=== PATIENT | female | born 1945 | race Caucasian/White ===

== ENCOUNTER 2016-07-20 09:27 | Emergency (ER) | payer MEDICARE, BC ==
[~2016-07-20] VITALS: Ht 165.1 cm; Wt 47.0 kg
[~2016-07-20 09:27] MED LIST: FOLI5CAP PO; INFL100P; SULF500 PO; TIMO0.5S5 EACH EYE; TRAV0.00 EACH EYE; ZOFR4TAB3 SL
[2016-07-20 09:32] VITALS: BP 103/58; PULSE 79; RESP 16; TEMP 97.5; O2SAT 98
[2016-07-20] MEDS ORDERED: SODIUM CHLOR 0.9% 1000 ML INJ 1,000 ML IV SCH ×2 (09:59→11:24)
[2016-07-20] MEDS ORDERED: ONDANSETRON HCL 4 MG/2 ML VIAL IVP ONE (10:00)
[2016-07-20] MEDS ORDERED: MORPHINE SULFATE 4 MG/ML INJ IV PUSH ONE (10:00)
[2016-07-20] MEDS ORDERED: SODIUM CHLORIDE 0.9% FLUSH 10 ML FLUSH IV FLUSH PRN (10:00)
[2016-07-20 10:14] LABS: BASOPHIL # 0.1 TH/MM3 (0-0.2); BASOPHIL % 0.6 % (0.0-2.0); EOSINOPHIL # 0.4 TH/MM3 (0-0.4); EOSINOPHIL % 2.5 % (0.0-4.0); HEMO FLAGS DIFF FINAL; MEAN CELL VOLUME 81.2 FL (80.0-100.0); MEAN CORPUSCULAR HEMOGLOBIN 27.6 PG (27.0-34.0); NEUT % 75.9 % (16.0-70.0); PLATELET COUNT 342 TH/MM3 (150-450); RED CELL DISTRIBUTION WIDTH 13.5 % (11.6-17.2); WHITE BLOOD COUNT 14.5 TH/MM3 (4.0-11.0)
[2016-07-20 10:24] LABS: INTERNATIONAL NORMALIZED RATIO 0.9 RATIO; PROTHROMBIN TIME - PATIENT 10.2 SEC (9.8-11.6)
--- NOTE | 2016-07-20 10:27 | PD ---
HPI Chief Complaint: Abdominal Pain Time Seen by Provider: 09:54 Travel History International Travel<30 days: No Contact w/Intl Traveler<30days: No Traveled to known affect area: No History of Present Illness HPI Patient is a 70-year-old female with history of Crohn's disease, presents to emergency room with complaints of abdominal pain. Patient reports that she has been having abdominal pain since yesterday afternoon, the pain is throughout her lower abdomen. She reports that she has had Crohn's flareups in the past with similar to symptoms to today. Patient reports that she does follow with Dr. Alejandra THIBODEAUX for her disease. She does get Remicade infusions and last had an infusion 2 weeks ago. Reports no nausea or vomiting, denies any diarrhea or constipation. Denies any bloody stools. Patient with no fevers or chills at this time. PFSH Past Medical History Arthritis: No Asthma: No Anxiety: No Depression: No Heart Rhythm Problems: No Cancer: No Cardiovascular Problems: No High Cholesterol: No Chest Pain: No Congestive Heart Failure: No COPD: No Cerebrovascular Accident: No Diabetes: No Diminished Hearing: No Endocrine: No Gastrointestinal Disorders: Yes (CROHN'S) GERD: No Glaucoma: Yes Genitourinary: No Hepatitis: No Hiatal Hernia: No Kidney Stones: Yes Musculoskeletal: No Neurologic: No Psychiatric: No Respiratory: No Immunizations Current: No Renal Failure: No Sleep Apnea: No Thyroid Disease: No Ulcer: No Influenza Vaccination: No ?: Not Menopausal: Yes Past Surgical History Abdominal Surgery: Yes (BOWEL RESECTION 1982, 1988) AICD: No Arteriovenous Shunt: No Body Medical Devices: BREAST IMPLANTS Cardiac Surgery: No Ear Surgery: No Endocrine Surgery: No Eye Surgery: No Genitourinary Surgery: No Gynecologic Surgery: No Insulin Pump: No Joint Replacement: No Oral Surgery: Yes (DENTURES) Pacemaker: No Thoracic Surgery: No Other Surgery: Yes Social History Alcohol Use: Yes (OCC) Tobacco Use: No (quit 6 years ago) Substance Use: No Allergies-Medications (Allergen,Severity, Reaction): Coded Allergies: Contrast Media (Verified Allergy, Intermediate, Hives, 07/20/16) Iodine (Verified Allergy, Intermediate, Hives, 07/20/16) Sulfa (Verified Allergy, Intermediate, Nausea/Vomiting, 07/20/16) Reported Meds & Prescriptions Reported Meds & Active Scripts Active Reported Travatan Z Opth Drops (Travoprost) 0.004 % Soln 1 Drop EACH EYE HS Timoptic Opth Drops (Timolol Opth Drops) 0.5 % Soln 1 Drop EACH EYE BID Remicade Inj (Infliximab) 100 Mg Inj Azulfidine (Sulfasalazine) 500 Mg Tab 500 Mg PO Q6H Folic Acid 5 Mg Cap 1 Mg PO DAILY Zofran Odt (Ondansetron Odt) 4 Mg Tab 4 Mg SL Q12HR PRN Review of Systems General / Constitutional: No: Fever Eyes: No: Visual changes HENT: No: Headaches Cardiovascular: No: Chest Pain or Discomfort Respiratory: No: Shortness of Breath Gastrointestinal: Positive: Abdominal Pain, No: Nausea, Vomiting, Diarrhea Genitourinary: No: Dysuria Musculoskeletal: No: Pain Skin: No Rash Neurologic: No: Weakness Psychiatric: No: Depression Endocrine: No: Polydipsia Hematologic/Lymphatic: No: Easy Bruising Physical Exam Narrative GENERAL: moderate distress SKIN: Focused skin assessment warm/dry. HEAD: Atraumatic. Normocephalic. EYES: Pupils equal and round. No scleral icterus. No injection or drainage. ENT: No nasal bleeding or discharge. Mucous membranes pink and moist. NECK: Trachea midline. No JVD. CARDIOVASCULAR: Regular rate and rhythm. No murmur appreciated. RESPIRATORY: No accessory muscle use. Clear to auscultation. Breath sounds equal bilaterally. GASTROINTESTINAL: Abdomen soft, increased tenderness to lower abdomen with guarding on exam. MUSCULOSKELETAL: No obvious deformities. No clubbing. No cyanosis. No edema. NEUROLOGICAL: Awake and alert. No obvious cranial nerve deficits. Motor grossly within normal limits. Normal speech. PSYCHIATRIC: Appropriate mood and affect; insight and judgment normal. Data Data Last Documented VS Vital Signs Date Time Temp Pulse Resp B/P Pulse Ox O2 Delivery O2 Flow Rate FiO2 07/20/16 11:50 18 07/20/16 11:09 79 103/58 97 Room Air 07/20/16 09:32 97.5 Orders Complete Blood Count With Diff (07/20/16 09:59) Comprehensive Metabolic Panel (07/20/16 09:59) Lipase (07/20/16 09:59) Prothrombin Time / Inr (Pt) (07/20/16 09:59) Act Partial Throm Time (Ptt) (07/20/16 09:59) Urinalysis - C+S If Indicated (07/20/16 09:59) Ct Abd/Pel W/O Iv Contrast (07/20/16 09:59) Iv Access Insert/Monitor (07/20/16 09:59) Morphine Inj (Morphine Inj) (07/20/16 10:00) Ondansetron Inj (Zofran Inj) (07/20/16 10:00) Sodium Chlor 0.9% 1000 Ml Inj (Ns 1000 M (07/20/16 09:59) Sodium Chloride 0.9% Flush (Ns Flush) (07/20/16 10:00) Hydromorphone Pf Inj (Dilaudid Pf Inj) (07/20/16 11:30) Sodium Chlor 0.9% 1000 Ml Inj (Ns 1000 M (07/20/16 11:24) Labs Laboratory Tests Test 07/20/16 10:00 White Blood Count 14.5 TH/MM3 Red Blood Count 4.30 MIL/MM3 Hemoglobin 11.9 GM/DL Hematocrit 35.0 % Mean Corpuscular Volume 81.2 FL Mean Corpuscular Hemoglobin 27.6 PG Mean Corpuscular Hemoglobin 34.0 % Concent Red Cell Distribution Width 13.5 % Platelet Count 342 TH/MM3 Mean Platelet Volume 7.4 FL Neutrophils (%) (Auto) 75.9 % Lymphocytes (%) (Auto) 14.0 % Monocytes (%) (Auto) 7.0 % Eosinophils (%) (Auto) 2.5 % Basophils (%) (Auto) 0.6 % Neutrophils # (Auto) 11.0 TH/MM3 Lymphocytes # (Auto) 2.0 TH/MM3 Monocytes # (Auto) 1.0 TH/MM3 Eosinophils # (Auto) 0.4 TH/MM3 Basophils # (Auto) 0.1 TH/MM3 CBC Comment DIFF FINAL Differential Comment Prothrombin Time 10.2 SEC Prothromb Time International 0.9 RATIO Ratio Activated Partial 25.0 SEC Thromboplast Time Sodium Level 142 MEQ/L Potassium Level 3.7 MEQ/L Chloride Level 108 MEQ/L Carbon Dioxide Level 29.7 MEQ/L Anion Gap 4 MEQ/L Blood Urea Nitrogen 14 MG/DL Creatinine 0.71 MG/DL Estimat Glomerular Filtration 81 ML/MIN Rate Random Glucose 89 MG/DL Calcium Level 8.5 MG/DL Total Bilirubin 0.4 MG/DL Aspartate Amino Transf 301 U/L (AST/SGOT) Alanine Aminotransferase 130 U/L (ALT/SGPT) Alkaline Phosphatase 104 U/L Total Protein 6.9 GM/DL Albumin 2.6 GM/DL Lipase 68 U/L MDM Medical Decision Making Medical Screen Exam Complete: Yes Emergency Medical Condition: Yes Interpretation(s) Vital Signs Date Time Temp Pulse Resp B/P Pulse Ox O2 Delivery O2 Flow Rate FiO2 07/20/16 10:20 18 07/20/16 09:32 97.5 79 16 103/58 98 Differential Diagnosis Crohn's disease, appendicitis, diverticulitis, small bowel obstruction, UTI Narrative Course Patient is a 70-year-old female with history of Crohn's disease, presents to emergency room with complaints of abdominal pain. Patient reports pain to her lower abdomen, reports symptoms are similar to when she has had Crohn's flareups in the past. On evaluation, patient is uncomfortable, patient does have lower abdominal pain with guarding on exam. Lab work including CT of the abdomen and pelvis ordered for workup of her symptoms. She was given IV fluids as well as pain medications. Will monitor patient on logger all round Vital Signs Date Time Temp Pulse Resp B/P Pulse Ox O2 Delivery O2 Flow Rate FiO2 07/20/16 11:50 18 07/20/16 11:09 79 18 103/58 97 Room Air 07/20/16 10:20 18 07/20/16 09:32 97.5 79 16 103/58 98 Laboratory Tests Test 07/20/16 10:00 White Blood Count 14.5 TH/MM3 (4.0-11.0) Red Blood Count 4.30 MIL/MM3 (4.00-5.30) Hemoglobin 11.9 GM/DL (11.6-15.3) Hematocrit 35.0 % (35.0-46.0) Mean Corpuscular Volume 81.2 FL (80.0-100.0) Mean Corpuscular Hemoglobin 27.6 PG (27.0-34.0) Mean Corpuscular Hemoglobin 34.0 % Concent (32.0-36.0) Red Cell Distribution Width 13.5 % (11.6-17.2) Platelet Count 342 TH/MM3 (150-450) Mean Platelet Volume 7.4 FL (7.0-11.0) Neutrophils (%) (Auto) 75.9 % (16.0-70.0) Lymphocytes (%) (Auto) 14.0 % (9.0-44.0) Monocytes (%) (Auto) 7.0 % (0.0-8.0) Eosinophils (%) (Auto) 2.5 % (0.0-4.0) Basophils (%) (Auto) 0.6 % (0.0-2.0) Neutrophils # (Auto) 11.0 TH/MM3 (1.8-7.7) Lymphocytes # (Auto) 2.0 TH/MM3 (1.0-4.8) Monocytes # (Auto) 1.0 TH/MM3 (0-0.9) Eosinophils # (Auto) 0.4 TH/MM3 (0-0.4) Basophils # (Auto) 0.1 TH/MM3 (0-0.2) CBC Comment DIFF FINAL Differential Comment Prothrombin Time 10.2 SEC (9.8-11.6) Prothromb Time International 0.9 RATIO Ratio Activated Partial 25.0 SEC Thromboplast Time (24.3-30.1) Sodium Level 142 MEQ/L (136-145) Potassium Level 3.7 MEQ/L (3.5-5.1) Chloride Level 108 MEQ/L (98-107) Carbon Dioxide Level 29.7 MEQ/L (21.0-32.0) Anion Gap 4 MEQ/L (5-15) Blood Urea Nitrogen 14 MG/DL (7-18) Creatinine 0.71 MG/DL (0.50-1.00) Estimat Glomerular Filtration 81 ML/MIN (>89) Rate Random Glucose 89 MG/DL (74-106) Calcium Level 8.5 MG/DL (8.5-10.1) Total Bilirubin 0.4 MG/DL (0.2-1.0) Aspartate Amino Transf 301 U/L (15-37) (AST/SGOT) Alanine Aminotransferase 130 U/L (10-53) (ALT/SGPT) Alkaline Phosphatase 104 U/L (45-117) Total Protein 6.9 GM/DL (6.4-8.2) Albumin 2.6 GM/DL (3.4-5.0) Lipase 68 U/L (73-393) Last Impressions Abdomen/Pelvis CT 07/20/16 [id number] Signed Impressions: Service Date/Time: Wednesday, July 20, 2016 10:18 - CONCLUSION: 1. There continues to be chronic abnormality involving the mid to distal small bowel with inflammatory changes, dilatation and multiple calcified enteroliths. This pattern is not significantly changed compared to 2016. There does appear to be some mild increased dilatation of the distal small bowel compared to the prior study. These findings correlate with patient's history of Crohn's disease. No focal or loculated abscess is seen. 2. Stable tiny 2 mm stone mid pole right kidney not causing obstruction. 3. Status post cholecystectomy. 4. Stable mesenteric mildly prominent lymph nodes. Ben Buitrago MD Patient re-evaluated, patient was still uncomfortable after 4 mg of morphine was administered, I did administer Dilaudid 1 mg as well as another bag of IV fluids. I reviewed all labs and all studies as well as CT findings in detail with patient. A copy of her CAT scan report was given to her for follow-up as outpatient. Patient reevaluated, patient reports that she is feeling much better after the second dose of pain medication. Her abdomen is soft, nontender, nondistended, no peritoneal signs. She will follow-up with her wardrobe stylist Dr. Espino as well as her primary care doctor. She will return to emergency room if symptoms worsen or progress Diagnosis Primary Impression: Abdominal pain Qualified Code: R10.30 - Lower abdominal pain Additional Impression: Leukocytosis Qualified Code: D72.829 - Leukocytosis, unspecified type Patient Instructions: General Instructions, Narcotic given in the ED Additional Instructions: Please follow up with your wardrobe stylist as soon as possible Please follow up with your primary care doctor in 24 to 48 hours Return to the emergency room symptoms worsen or progress Return to the emergency room as needed Mariela Lyle DO July 20, 2016 10:27
[2016-07-20 10:30] LABS: CHLORIDE 108 MEQ/L (98-107); POTASSIUM 3.7 MEQ/L (3.5-5.1); SODIUM (NA) 142 MEQ/L (136-145)
[2016-07-20 10:34] LABS: ANION GAP 4 MEQ/L (5-15); BICARBONATE 29.7 MEQ/L (21.0-32.0); BLOOD UREA NITROGEN 14 MG/DL (7-18)
[2016-07-20 10:37] LABS: ALT (GPT) 130 U/L (10-53); AST (GOT) 301 U/L (15-37); GLOMERULAR FILTRATION RATE 81 ML/MIN (>89)
[2016-07-20 10:38] LABS: TOTAL BILIRUBIN ADULT 0.4 MG/DL (0.2-1.0)
[2016-07-20 10:39] LABS: ALKALINE PHOSPHATASE 104 U/L (45-117)
--- NOTE | 2016-07-20 10:47 | RADHPO ---
EXAM DATE/TIME: 07/20/2016 10:18 [facility] COMPARISON: CT ABDOMEN & PELVIS W/O CONTRAST, December 24, 2015, 14:55. INDICATIONS : Diffuse abdominal pain with nausea. ORAL CONTRAST: No oral contrast ingested. RADIATION DOSE: 4.83 CTDIvol (mGy) MEDICAL HISTORY : Crohn's disease. SURGICAL HISTORY : Bowel resection. ENCOUNTER: Initial ACUITY: 2 days PAIN SCALE: 3/10 LOCATION: abdomen/pelvis TECHNIQUE: Volumetric scanning of the abdomen and pelvis was performed. Using automated exposure control and ad justment of the mA and/or kV according to patient size, radiation dose was kept as low as reasonably achievable to obtain optimal diagnostic quality images. The lack of IV contrast limits the diagnosis for certain organ pathology. FINDINGS: LOWER LUNGS: The visualized lower lungs are clear. LIVER: Homogeneous density without lesion. There is no dilation of the biliary tree. No gallbladder, surgi moira removed. No significant changes. SPLEEN: Normal size without lesion. PANCREAS: Within normal limits. KIDNEYS: Normal in size and shape. There is no mass or hydronephrosis. Tiny stable nonobstructing 2 mm stone mid pole right kidney. No significant changes compared to the prior study. ADRENAL GLANDS: Within normal limits. VASCULAR: There is no aortic aneurysm. Stable atherosclerotic changes. BOWEL/MESENTERY: There continues to be chronic abnormality involving the small bowel. There are multiple stable calcif ications noted in some dilated loops of small bowel characteristic of anterolisthesis. These were pre sent on the prior study without significant change. There continues to be some diffusely dilated loop s of distal small bowel which are slightly more prominent on today's exam compared to the prior exam. This would correlate with patient's history of Crohn's disease. The colon is nondistended. There is stool in the colon. No loculated fluid collections are seen to suggest an abscess. There continues to be inflammatory changes involving the small bowel characteristic of Crohn's disease. Stable mesenter ic lymph nodes in the abdomen. ABDOMINAL WALL: Within normal limits. RETROPERITONEUM: Stable mesenteric lymph nodes in the abdomen. BLADDER: Decompressed REPRODUCTIVE: Within normal limits. INGUINAL: There is no lymphadenopathy or hernia. MUSCULOSKELETAL: Within normal limits for patient age. There is curvature of the lumbar spine to the right. No signifi cant changes. CONCLUSION: 1. There continues to be chronic abnormality involving the mid to distal small bowel with inflammator y changes, dilatation and multiple calcified enteroliths. This pattern is not significantly changed c ompared to 2016. There does appear to be some mild increased dilatation of the distal small bowel com pared to the prior study. These findings correlate with patient's history of Crohn's disease. No foca l or loculated abscess is seen. 2. Stable tiny 2 mm stone mid pole right kidney not causing obstruction. 3. Status post cholecystectomy. 4. Stable mesenteric mildly prominent lymph nodes. Ben Buitrago MD on July 20, 2016 at 10:37 Board Certified Radiologist. This report was verified electronically.
[2016-07-20 11:09] VITALS: BP 103/58; PULSE 79; RESP 18; O2SAT 97
[2016-07-20] MEDS ORDERED: HYDROmorphone HCL PF 2 MG/ML VIAL IVS ONE (11:30)
[2016-07-20 11:50] VITALS: RESP 18
== END 2016-07-20 13:04 | disposition home or self-care (01) ==
LOC: PHED 09:27
DX: R10.30 Lower abdominal pain, unspecified (principal); D72.829 Elevated white blood cell count, unspecified; K50.90 Crohn's disease, unspecified, without complications; N20.0 Calculus of kidney; H40.9 Unspecified glaucoma; Z87.891 Personal history of nicotine dependence; Z79.899 Other long term (current) drug therapy; Z88.2 Allergy status to sulfonamides
CPT/HCPCS: 74176; 80053; 83690; 85025; 85610; 85730; 96361; 96374; 96375; 99285; J1170; J2270; J2405; J7030

== ENCOUNTER 2016-08-22 16:52 | Inpatient (IN) | payer MEDICARE, BC ==
[~2016-08-22] VITALS: Ht 165.1 cm; Wt 50.8 kg
[2016-08-22] VITALS (7 sets, daily range): BP systolic 107–121; BP diastolic 57–66; PULSE 79–87; RESP 16–18; TEMP 95–98.1; O2SAT 95–99
[2016-08-22] MEDS ORDERED: BUDE3CAP PO (17:20)
[2016-08-22] MEDS ORDERED: FOLI800T PO (17:20)
[2016-08-22] MEDS ORDERED: SODIUM CHLOR 0.9% 1000 ML INJ 1,000 ML IV SCH (17:49)
[2016-08-22] MEDS ORDERED: ONDANSETRON HCL 4 MG/2 ML VIAL IVP ONE (18:00)
[2016-08-22] MEDS ORDERED: HYDROmorphone HCL PF 2 MG/ML VIAL IVS ONE (18:00)
[2016-08-22] MEDS ORDERED: SODIUM CHLORIDE 0.9% FLUSH 10 ML FLUSH IV FLUSH PRN ×2 (18:00→21:15)
[2016-08-22 18:23] LABS: CHLORIDE 101 MEQ/L (98-107); POTASSIUM 3.3 MEQ/L (3.5-5.1); SODIUM (NA) 143 MEQ/L (136-145)
[2016-08-22 18:24] LABS: AUTOMATED NEUTROPHIL # 18.2 TH/MM3 (1.8-7.7); BASOPHIL % 0.1 % (0.0-2.0); EOSINOPHIL # 0.2 TH/MM3 (0-0.4); EOSINOPHIL % 1.1 % (0.0-4.0); LYMPH % 4.9 % (9.0-44.0); MEAN CELL VOLUME 80.6 FL (80.0-100.0); MEAN CORPUSCULAR HEMOGLOBIN 26.3 PG (27.0-34.0); MEAN CORPUSCULAR HGB CONC 32.6 % (32.0-36.0); MONO % 6.2 % (0.0-8.0); NEUT % 87.7 % (16.0-70.0); PLATELET COUNT 315 TH/MM3 (150-450); RED BLOOD COUNT 4.47 MIL/MM3 (4.00-5.30); RED CELL DISTRIBUTION WIDTH 13.5 % (11.6-17.2); WHITE BLOOD COUNT 20.7 TH/MM3 (4.0-11.0)
[2016-08-22 18:27] LABS: ANION GAP 9 MEQ/L (5-15); BICARBONATE 33.5 MEQ/L (21.0-32.0); BLOOD UREA NITROGEN 16 MG/DL (7-18)
--- NOTE | 2016-08-22 18:27 | PD ---
HPI Chief Complaint: Abdominal Pain Time Seen by Provider: 17:20 Travel History International Travel<30 days: No Contact w/Intl Traveler<30days: No Traveled to known affect area: No History of Present Illness HPI 71-year-old female arrives complaining of abdominal pain and back pain. She has severe nausea. The abdominal and back pain are both quite severe for her. She reports that it has been worsening all day long. She has had similar prior episodes. She reports a history of Crohn's disease. Normally Crohn's disease affects the right side primarily however now seems to affect the entirety of the abdomen. She denies fever. She's had no vomiting or diarrhea. Urination has been normal. She reports a colonoscopy and endoscopy was performed within the past few months revealing a normal endoscopy and ulcerations on the colonoscopy. [facility] Past Medical History Arthritis: No Asthma: No Anxiety: No Depression: No Heart Rhythm Problems: No Cancer: No Cardiovascular Problems: No High Cholesterol: No Chest Pain: No Congestive Heart Failure: No COPD: No Cerebrovascular Accident: No Diabetes: No Diminished Hearing: No Endocrine: No Gastrointestinal Disorders: Yes (CROHN'S) GERD: No Glaucoma: Yes Genitourinary: No Hepatitis: No Hiatal Hernia: No Kidney Stones: Yes Musculoskeletal: No Neurologic: No Psychiatric: No Respiratory: No Immunizations Current: No Renal Failure: No Sleep Apnea: No Thyroid Disease: No Ulcer: No Tetanus Vaccination: Unknown ?: Not Menopausal: Yes Past Surgical History Abdominal Surgery: Yes (BOWEL RESECTION 1982, 1988) AICD: No Arteriovenous Shunt: No Body Medical Devices: BREAST IMPLANTS Cardiac Surgery: No Ear Surgery: No Endocrine Surgery: No Eye Surgery: Yes (cataracts) Genitourinary Surgery: No Gynecologic Surgery: No Insulin Pump: No Joint Replacement: No Oral Surgery: Yes (DENTURES) Pacemaker: No Thoracic Surgery: No Other Surgery: Yes Social History Alcohol Use: Yes (OCC) Tobacco Use: No (quit 6 years ago) Substance Use: No Allergies-Medications (Allergen,Severity, Reaction): Coded Allergies: Contrast Media (Verified Allergy, Intermediate, Hives, 08/22/16) Iodine (Verified Allergy, Intermediate, Hives, 08/22/16) Sulfa (Verified Allergy, Intermediate, Nausea/Vomiting, 08/22/16) Reported Meds & Prescriptions Reported Meds & Active Scripts Active Reported Budesonide DR (Budesonide) 3 Mg Capdr 9 Mg PO DAILY Folic Acid 800 Mcg Tab 1 Mg PO DAILY Timoptic Opth Drops (Timolol Opth Drops) 0.5 % Soln 1 Drop EACH EYE BID Remicade Inj (Infliximab) 100 Mg Inj Azulfidine (Sulfasalazine) 500 Mg Tab 500 Mg PO Q6H Folic Acid 5 Mg Cap 1 Mg PO DAILY Zofran Odt (Ondansetron Odt) 4 Mg Tab 4 Mg SL Q12HR PRN Review of Systems Except as stated in HPI: all other systems reviewed are Neg Physical Exam Narrative GENERAL: Well-nourished well-developed 71-year-old female distress SKIN: Focused skin assessment warm/dry. HEAD: Atraumatic. Normocephalic. EYES: Pupils equal and round. No scleral icterus. No injection or drainage. ENT: No nasal bleeding or discharge. Mucous membranes pink and moist. NECK: Trachea midline. No JVD. CARDIOVASCULAR: Regular rate and rhythm. No murmur appreciated. RESPIRATORY: No accessory muscle use. Clear to auscultation. Breath sounds equal bilaterally. GASTROINTESTINAL: Soft. Nonspecific generalized tenderness. MUSCULOSKELETAL: No obvious deformities. No clubbing. No cyanosis. No edema. NEUROLOGICAL: Awake and alert. No obvious cranial nerve deficits. Motor grossly within normal limits. Normal speech. PSYCHIATRIC: Appropriate mood and affect; insight and judgment normal. Data Data Last Documented VS Vital Signs Date Time Temp Pulse Resp B/P Pulse Ox O2 Delivery O2 Flow Rate FiO2 08/22/16 18:22 95.0 87 110/58 08/22/16 17:55 95 08/22/16 16:57 18 Orders Complete Blood Count With Diff (08/22/16 17:49) Comprehensive Metabolic Panel (08/22/16 17:49) Lipase (08/22/16 17:49) Urinalysis - C+S If Indicated (08/22/16 17:49) Iv Access Insert/Monitor (08/22/16 17:49) Ecg Monitoring (08/22/16 17:49) Oximetry (08/22/16 17:49) Hydromorphone Pf Inj (Dilaudid Pf Inj) (08/22/16 18:00) Ondansetron Inj (Zofran Inj) (08/22/16 18:00) Sodium Chlor 0.9% 1000 Ml Inj (Ns 1000 M (08/22/16 17:49) Sodium Chloride 0.9% Flush (Ns Flush) (08/22/16 18:00) Ct Abd/Pel W/O Iv Contrast (08/22/16 18:57) Labs Laboratory Tests Test 08/22/16 17:57 White Blood Count 20.7 TH/MM3 Red Blood Count 4.47 MIL/MM3 Hemoglobin 11.8 GM/DL Hematocrit 36.0 % Mean Corpuscular Volume 80.6 FL Mean Corpuscular Hemoglobin 26.3 PG Mean Corpuscular Hemoglobin 32.6 % Concent Red Cell Distribution Width 13.5 % Platelet Count 315 TH/MM3 Mean Platelet Volume 8.2 FL Neutrophils (%) (Auto) 87.7 % Lymphocytes (%) (Auto) 4.9 % Monocytes (%) (Auto) 6.2 % Eosinophils (%) (Auto) 1.1 % Basophils (%) (Auto) 0.1 % Neutrophils # (Auto) 18.2 TH/MM3 Lymphocytes # (Auto) 1.0 TH/MM3 Monocytes # (Auto) 1.3 TH/MM3 Eosinophils # (Auto) 0.2 TH/MM3 Basophils # (Auto) 0.0 TH/MM3 CBC Comment AUTO DIFF Sodium Level 143 MEQ/L Potassium Level 3.3 MEQ/L Chloride Level 101 MEQ/L Carbon Dioxide Level 33.5 MEQ/L Anion Gap 9 MEQ/L Blood Urea Nitrogen 16 MG/DL Creatinine 0.64 MG/DL Estimat Glomerular Filtration 91 ML/MIN Rate Random Glucose 102 MG/DL Calcium Level 7.9 MG/DL Total Bilirubin 0.4 MG/DL Aspartate Amino Transf 25 U/L (AST/SGOT) Alanine Aminotransferase 14 U/L (ALT/SGPT) Alkaline Phosphatase 94 U/L Total Protein 6.5 GM/DL Albumin 2.4 GM/DL Lipase 52 U/L MDM Medical Decision Making Medical Screen Exam Complete: Yes Emergency Medical Condition: Yes Medical Record Reviewed: Yes Differential Diagnosis Constipation, Gastritis, Acute Cholecystitis, Biliary Colic, Pancreatitis, BERRY , Hepatitis, Bowel Obstruction, Cystitis, Mesenteric Ischemia, AAA, Appendicitis , Renal Stone/Hydronephrosis, GERD, perforated viscous Narrative Course CBC & BMP Diagram 08/22/16 17:57 LFTs and lipase normal Unexpectedly the white count is 20,000. CT scan added on. Case discussed with Dr. Doe who will follow-up the CT scan disposition the patient. Wero Escalera MD Aug 22, 2016 18:27
[2016-08-22 18:30] LABS: ALT (GPT) 14 U/L (10-53); AST (GOT) 25 U/L (15-37); GLOMERULAR FILTRATION RATE 91 ML/MIN (>89)
[2016-08-22 18:32] LABS: TOTAL BILIRUBIN ADULT 0.4 MG/DL (0.2-1.0)
[2016-08-22 18:33] LABS: ALKALINE PHOSPHATASE 94 U/L (45-117)
[2016-08-22 18:48] LABS: HEMO FLAGS AUTO DIFF
--- NOTE | 2016-08-22 19:09 | PD ---
Physical Exam Date Seen by Provider: Aug 22, 2016 Time Seen by Provider: 19:08 Narrative accepted in transfer of care from Dr Escalera Data Data Last Documented VS Vital Signs Date Time Temp Pulse Resp B/P Pulse Ox O2 Delivery O2 Flow Rate FiO2 08/22/16 20:45 82 16 107/62 96 Room Air 08/22/16 18:22 95.0 Orders Complete Blood Count With Diff (08/22/16 17:49) Comprehensive Metabolic Panel (08/22/16 17:49) Lipase (08/22/16 17:49) Urinalysis - C+S If Indicated (08/22/16 17:49) Iv Access Insert/Monitor (08/22/16 17:49) Ecg Monitoring (08/22/16 17:49) Oximetry (08/22/16 17:49) Hydromorphone Pf Inj (Dilaudid Pf Inj) (08/22/16 18:00) Ondansetron Inj (Zofran Inj) (08/22/16 18:00) Sodium Chlor 0.9% 1000 Ml Inj (Ns 1000 M (08/22/16 17:49) Sodium Chloride 0.9% Flush (Ns Flush) (08/22/16 18:00) Ct Abd/Pel W/O Iv Contrast (08/22/16 18:57) Ondansetron Inj (Zofran Inj) (08/22/16 20:30) Hydromorphone Pf Inj (Dilaudid Pf Inj) (08/22/16 20:30) Urine Culture (08/22/16 19:45) Labs Laboratory Tests Test 08/22/16 08/22/16 17:57 19:45 White Blood Count 20.7 TH/MM3 Red Blood Count 4.47 MIL/MM3 Hemoglobin 11.8 GM/DL Hematocrit 36.0 % Mean Corpuscular Volume 80.6 FL Mean Corpuscular Hemoglobin 26.3 PG Mean Corpuscular Hemoglobin 32.6 % Concent Red Cell Distribution Width 13.5 % Platelet Count 315 TH/MM3 Mean Platelet Volume 8.2 FL Neutrophils (%) (Auto) 87.7 % Lymphocytes (%) (Auto) 4.9 % Monocytes (%) (Auto) 6.2 % Eosinophils (%) (Auto) 1.1 % Basophils (%) (Auto) 0.1 % Neutrophils # (Auto) 18.2 TH/MM3 Lymphocytes # (Auto) 1.0 TH/MM3 Monocytes # (Auto) 1.3 TH/MM3 Eosinophils # (Auto) 0.2 TH/MM3 Basophils # (Auto) 0.0 TH/MM3 CBC Comment AUTO DIFF Differential Total Cells 100 Counted Neutrophils % (Manual) 80 % Band Neutrophils % 8 % Lymphocytes % 6 % Monocytes % 6 % Neutrophils # (Manual) 18.2 TH/MM3 Differential Comment FINAL DIFF MANUAL Platelet Estimate NORMAL Platelet Morphology Comment NORMAL Red Cell Morphology Comment NORMAL Sodium Level 143 MEQ/L Potassium Level 3.3 MEQ/L Chloride Level 101 MEQ/L Carbon Dioxide Level 33.5 MEQ/L Anion Gap 9 MEQ/L Blood Urea Nitrogen 16 MG/DL Creatinine 0.64 MG/DL Estimat Glomerular Filtration 91 ML/MIN Rate Random Glucose 102 MG/DL Calcium Level 7.9 MG/DL Total Bilirubin 0.4 MG/DL Aspartate Amino Transf 25 U/L (AST/SGOT) Alanine Aminotransferase 14 U/L (ALT/SGPT) Alkaline Phosphatase 94 U/L Total Protein 6.5 GM/DL Albumin 2.4 GM/DL Lipase 52 U/L Urine Color YELLOW Urine Turbidity SLIGHT Urine pH 5.5 Urine Specific Sharples 1.024 Urine Protein TRACE mg/dL Urine Glucose (UA) NEG mg/dL Urine Ketones 15 mg/dL Urine Occult Blood NEG Urine Nitrite NEG Urine Bilirubin NEG Urine Leukocyte Esterase SMALL Urine RBC 0-3 /hpf Urine WBC 6-8 /hpf Urine Squamous Epithelial 0-5 /hpf Cells Urine Amorphous Sediment SMALL Urine Bacteria FEW /hpf Urine Mucus OCC /lpf Microscopic Urinalysis Comment CULTURE INDICATED MDM Medical Record Reviewed: Yes Supervised Visit with JEAN MARIE: No Interpretation(s) Last Impressions Abdomen/Pelvis CT 08/22/16 [id number] Signed Impressions: Service Date/Time: Monday, August 22, 2016 19:20 - CONCLUSION: 1. Abnormal appearance of the bowel with dilatation of the small and large bowel. This appearance is unchanged from the prior exam. 2. Increased soft tissue density in the right lower quadrant. There appears to be a post-operative change in this region. There are also multiple enterolith seen. There is some induration seen in the mesenteric extending towards the right lateral abdominal and pelvic margins. All these findings are stable. Jimy Poole MD Differential Diagnosis accepted in transfer of care from Dr Escalera Narrative Course accepted in transfer of care from Dr Escalera Sepsis Criteria SIRS Criteria (2 or more): Temp > 100.9 or < 96.8, WBC > 51767, < 4000 or > 10 % bands Physician Communication Physician Communication discussed with Dr Vazquez Diagnosis Primary Impression: Crohn's disease (regional enteritis) Qualified Code: K50.919 - Crohn's disease with complication, unspecified gastrointestinal tract location Additional Impression: Intractable pain Admitting Information Admitting Physician Requests: Admit Anca Doe MD Aug 22, 2016 19:09
[2016-08-22 19:37] LABS: BANDS 8 % (0-6); NEUTROPHIL # MANUAL DIFF 18.2 TH/MM3 (1.8-7.7); POLYS (SEG NEUTROPHILS) 80 % (16-70); WBC DIFF SAMPLE 100
[2016-08-22 19:38] LABS: PLATELET ESTIMATE SMEAR NORMAL (NORMAL); PLATELET MORPHOLOGY NORMAL (NORMAL); SCAN/DIFF FINAL DIFF MANUAL
[2016-08-22 19:55] LABS: BLOOD, URINE NEG (NEG); GLUCOSE,URINE NEG (NEG); KETONE, URINE 15 mg/dL (NEG); NITRITE,URINE NEG (NEG); PH, URINE 5.5 (5.0-8.5)
[2016-08-22] MEDS ORDERED: ONDANSETRON HCL 4 MG/2 ML VIAL IV PUSH ONE (20:30)
[2016-08-22] MEDS ORDERED: HYDROmorphone HCL PF 1 MG/ML VIAL IV PUSH ONE (20:30)
[2016-08-22 20:36] LABS: MUCUS URINE OCC /lpf (OCC); URINE COLOR YELLOW (YELLW/STRAW)
--- NOTE | 2016-08-22 20:36 | RADRPT ---
EXAM DATE/TIME: 08/22/2016 19:20 [facility] COMPARISON: CT ABDOMEN & PELVIS W/O CONTRAST, December 27, 2013, 20:34. CT ABDOMEN & PELVIS W/O CONTRAST, 2015, 14:55. CT ABDOMEN & PELVIS W/O CONTRAST, July 20, 2016, 10:18. INDICATIONS : Non specific abdominal pain with nausea. ORAL CONTRAST: No oral contrast ingested. RADIATION DOSE: 4.66 CTDIvol (mGy) MEDICAL HISTORY : Crohn's disease. SURGICAL HISTORY : Cholecystectomy. Bowel resection. ENCOUNTER: Initial ACUITY: 2 days LOCATION: Abdomen TECHNIQUE: Volumetric scanning of the abdomen and pelvis was performed. Using automated exposure control and ad justment of the mA and/or kV according to patient size, radiation dose was kept as low as reasonably achievable to obtain optimal diagnostic quality images. DICOM format image data is available electro nically for review and comparison. FINDINGS: There continues to be an area of prominent soft tissue density in the right mid to lower abdomen isaías uring approximately 7.9 x 6.1 cm in size. There are clips and what appear to be enterolith in this r egion. The patient may have been status-post resection of the distal small bowel and ascending colon with an osmosis in this region. This appearance appears fairly similar to the prior exam. There is dilatated small and large bowel. The small bowel measures up to 4.9 cm in greatest dimension. Ther e is some stranding in the right lateral mesentery extending towards the right lateral pelvic sidewal l. These changes were present previously and are unchanged. There is a small 0.6 cm hypodensity identified at the lateral aspect of the right lobe of the liver. This is unchanged. The spleen, pancreas and adrenals glands are normal for a non-contrast CT examin ation. There are tiny 1 to 2 mm non-obstructing renal stones seen bilaterally. No hydronephrosis is identified. Scattered atherosclerotic calcifications are seen throughout the arterial system. An a neurysm is not seen. The pelvic structures appear grossly intact. There is some mild increased dens ity identified at the posterior lung bases bilaterally. There is a mild pericardial effusion measuri ng up to 8 mm seen over the posterior aspect of the left ventricle. There is some degenerative oconnor e in the lumbar spine. Bilateral breast implants are present. CONCLUSION: 1. Abnormal appearance of the bowel with dilatation of the small and large bowel. This appearance is unchanged from the prior exam. 2. Increased soft tissue density in the right lower quadrant. There appears to be a post-operative c hange in this region. There are also multiple enterolith seen. There is some induration seen in the mesenteric extending towards the right lateral abdominal and pelvic margins. All these findings are stable. Jimy Poole MD on August 22, 2016 at 19:38 Board Certified Radiologist. This report was verified electronically.
[2016-08-22 20:37] LABS: BACTERIA, URINE FEW /hpf; COMMENT (UR) CULTURE INDICATED; CULTURE IF INDICATED CULTURE INDICATED; RBC, URINE 0-3 /hpf (0-3); SQUAMOUS EPITHELIAL CELL URINE 0-5 /hpf (0-5)
[2016-08-22] MEDS ORDERED: MAGNESIUM HYDROXIDE SUSP 30 ML CUP PO PRN (21:15)
[2016-08-22] MEDS ORDERED: ACETAMINOPHEN 325 MG TAB PO PRN (21:15)
[2016-08-22] MEDS ORDERED: SODIUM CHLORIDE 0.9% FLUSH 10 ML FLUSH IVF PRN (21:15)
[2016-08-22] MEDS ORDERED: SODIUM CHLOR 0.9% 1000 ML INJ 1,000 ML IV ONE (21:15)
[2016-08-22] MEDS ORDERED: BISACODYL 10 MG SUPP RECTAL PRN (21:15)
[2016-08-22] MEDS ORDERED: SENNOSIDES 8.6 MG TAB PO PRN (21:15)
[2016-08-22] MEDS ORDERED: LACTULOSE SYRUP 20 GM/30 ML CUP PO PRN (21:15)
[2016-08-22] MEDS: sulfaSALAzine 500 MG TAB PO SCH (22:00)
[2016-08-22] MEDS: CIPROFLOXACIN 400 MG PREMIX 200 ML IV SCH (22:25)
[2016-08-22] MEDS: ACETAMINOPHEN/HYDROcodone 325 MG/5 MG TAB PO PRN (22:25)
[2016-08-22] MEDS: SODIUM CHLOR 0.9% 1000 ML INJ 1,000 ML IV SCH (22:25)
[2016-08-22] MEDS: TIMOLOL MALEATE 0.5% OPHT SOLN 5 ML BTL EACH EYE SCH (22:45)
[2016-08-22] MEDS: metroNIDAZOLE 500 MG INJ 100 ML IV SCH (23:37)
[2016-08-23] MEDS: ONDANSETRON HCL 4 MG/2 ML VIAL IVP PRN ×2 (00:10→07:48)
[2016-08-23] MEDS: HYDROmorphone HCL PF 1 MG/ML VIAL IV PRN ×2 (00:22→11:26)
[2016-08-23 00:56] VITALS: BP 121/59; PULSE 84; RESP 18; TEMP 98.3; O2SAT 93
[2016-08-23] MEDS: sulfaSALAzine 500 MG TAB PO SCH ×4 (04:31→21:21)
[2016-08-23] MEDS: metroNIDAZOLE 500 MG INJ 100 ML IV SCH ×3 (04:31→23:10)
[2016-08-23 05:38] LABS: AUTOMATED NEUTROPHIL # 10.2 TH/MM3 (1.8-7.7); BASOPHIL % 0.3 % (0.0-2.0); EOSINOPHIL # 0.1 TH/MM3 (0-0.4); HEMATOCRIT 29.1 % (35.0-46.0); HEMO FLAGS DIFF FINAL; LYMPH % 11.3 % (9.0-44.0); LYMPHOCYTE # 1.4 TH/MM3 (1.0-4.8); MEAN CELL VOLUME 82.1 FL (80.0-100.0); MEAN CORPUSCULAR HEMOGLOBIN 26.6 PG (27.0-34.0); MEAN CORPUSCULAR HGB CONC 32.4 % (32.0-36.0); MONO % 7.8 % (0.0-8.0); NEUT % 79.6 % (16.0-70.0); PLATELET COUNT 263 TH/MM3 (150-450); RED BLOOD COUNT 3.54 MIL/MM3 (4.00-5.30); RED CELL DISTRIBUTION WIDTH 13.6 % (11.6-17.2); WHITE BLOOD COUNT 12.7 TH/MM3 (4.0-11.0)
[2016-08-23 06:17] LABS: CALCIUM-PROTEIN CORRECTED 7.9 MG/DL (8.5-10.1); TOTAL BILIRUBIN ADULT 0.3 MG/DL (0.2-1.0)
[2016-08-23 06:41] LABS: POTASSIUM 2.8 MEQ/L (3.5-5.1)
[2016-08-23] MEDS ORDERED: POTASSIUM CHLORIDE 25 MEQ EFFERVESCENT TAB PO ONE (07:00)
[2016-08-23] MEDS: FOLIC ACID 1 MG TAB PO SCH (07:46)
[2016-08-23] MEDS: TIMOLOL MALEATE 0.5% OPHT SOLN 5 ML BTL EACH EYE SCH ×2 (07:46→21:14)
[2016-08-23] MEDS: ACETAMINOPHEN/HYDROcodone 325 MG/5 MG TAB PO PRN ×2 (07:47→21:21)
[2016-08-23 08:00] VITALS: BP 118/65; PULSE 81; RESP 17; TEMP 97.4; O2SAT 93; O2SAT 95
[2016-08-23] MEDS: POTASSIUM CHLOR 20 MEQ PREMIX 100 ML IV SCH ×2 (08:03→09:00)
[2016-08-23] MEDS: SODIUM CHLOR 0.9% 1000 ML INJ 1,000 ML IV SCH ×2 (08:05→15:57)
[2016-08-23] MEDS ORDERED: TIMOLOL MALEATE 0.5% OPHT SOLN 5 ML BTL EACH EYE SCH (09:00)
[2016-08-23] MEDS ORDERED: BUDESONIDE 9 MG PO SCH (09:00)
[2016-08-23] MEDS ORDERED: DOCUSATE SODIUM 50 MG/SENNA 8.6 MG TAB PO SCH (09:00)
[2016-08-23] MEDS: SODIUM CHLORIDE 0.9% FLUSH 10 ML FLUSH IV FLUSH SCH ×2 (09:00→21:17)
[2016-08-23] MEDS ORDERED: SODIUM CHLORIDE 0.9% FLUSH 10 ML FLUSH IV FLUSH SCH (09:00)
[2016-08-23] MEDS: CIPROFLOXACIN 400 MG PREMIX 200 ML IV SCH ×2 (10:12→21:13)
[2016-08-23] MEDS ORDERED: methylPREDNISolone SOD SUCC 125 MG/2 ML VIAL IV PUSH SCH (10:45)
--- NOTE | 2016-08-23 10:46 | HHI.HP ---
cc: Richmond Meredith MD [facility] Service [facility] Primary Care Physician No Primary Care Physician Admission Diagnosis Crohn's disease flare; intractable pain Diagnoses: Chief Complaint: Abdominal pain Travel History International Travel<30 Days: No Contact w/Intl Traveler <30 Da: No Traveled to Known Affected Are: No Sepsis Criteria SIRS Criteria (2 or more): Temp > 100.9 or < 96.8, WBC > 70865, < 4000 or > 10 % bands Sepsis Criteria (SIRS+source): Infect source susp/known History of Present Illness Patient's 71-year-old female with a history of Crohn's and plantar bowel disease who is complaining of Increased abdominal pain and back pain and nausea as well as intermittent constipation and diarrhea for the last 3 days. Patient says this is similar to Crohn's exacerbation and her pain was severe and now localized on the right side. It is improved with IV antibiotics and IV narcotics Review of Systems Constitutional: DENIES: Diaphoretic episodes, Fatigue, Fever, Weight gain, Weight loss, Chills, Dizziness, Change in appetite, Night Sweats Endocrine: DENIES: Abnorml menstrual pattern, Heat/cold intolerance, Polydipsia , Polyuria, Polyphagia Eyes: DENIES: Blurred vision, Diplopia, Eye inflammation, Eye pain, Vision loss , Photosensitivity, Double Vision Ears, nose, mouth, throat: DENIES: Tinnitus, Hearing loss, Vertigo, Nasal discharge, Oral lesions, Throat pain, Hoarseness, Ear Pain, Running Nose, Epistaxis, Sinus Pain, Toothache, Odynophagia Respiratory: DENIES: Apneas, Cough, Snoring, Wheezing, Hemoptysis, Sputum production, Shortness of breath Cardiovascular: DENIES: Chest pain, Palpitations, Syncope, Dyspnea on Exertion , PND, Lower Extremity Edema, Orthopnea, Claudication Gastrointestinal: COMPLAINS OF: Abdominal pain, Constipation, Diarrhea, Nausea , Vomiting Genitourinary: DENIES: Abnormal vaginal bleeding, Dysmenorrhea, Dyspareunia, Sexual dysfunction, Urinary frequency, Urinary incontinence, Urgency, Hematuria , Dysuria, Nocturia, Vaginal discharge Musculoskeletal: DENIES: Joint pain, Muscle aches, Stiffness, Joint Swelling, Back pain, Neck pain Integumentary: DENIES: Abnormal pigmentation, Pruritus, Rash, Nail changes, Breast masses, Breast skin changes, Nipple discharge Hematologic/lymphatic: DENIES: Bruising, Lymphadenopathy Immunologic/allergic: DENIES: Eczema, Urticaria Neurologic: DENIES: Abnormal gait, Headache, Localized weakness, Paresthesias, Seizures, Speech Problems, Tremor, Poor Balance Psychiatric: DENIES: Anxiety, Confusion, Mood changes, Depression, Hallucinations, Agitation, Suicidal Ideation, Homicidal Ideation, Delusions Past Family Social History Past Medical History Crohn's inflammatory bowel disease and Past Surgical History Bowel resection Breast implants Cataracts Dentures Reported Medications Reviewed in the medical record, no recent changes Allergies: Coded Allergies: Contrast Media (Verified Allergy, Intermediate, Hives, 08/22/16) Iodine (Verified Allergy, Intermediate, Hives, 08/22/16) Sulfa (Verified Allergy, Intermediate, Nausea/Vomiting, 08/22/16) Active Ordered Medications Reviewed in the medical record Family History Mom had Crohn's Father had lung cancer and was exposed asbestosis at 58 Social History No tobacco or alcohol dependency (quit tobacco 10 years ago) 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 SKIN: No rashes, ecchymoses or lesions. Cool and dry. HEAD: Atraumatic. Normocephalic. No temporal or scalp tenderness. EYES: Pupils equal round and reactive. Extraocular motions intact. No scleral icterus. No injection or drainage. ENT: Nose without bleeding, purulent drainage or septal hematoma. Throat without erythema, tonsillar hypertrophy or exudate. Uvula midline. Airway patent. NECK: Trachea midline. No JVD or lymphadenopathy. Supple, nontender, no meningeal signs. CARDIOVASCULAR: Regular rate and rhythm without murmurs, gallops, or rubs. RESPIRATORY: Clear to auscultation. Breath sounds equal bilaterally. No wheezes , rales, or rhonchi. GASTROINTESTINAL: Abdomen soft, non-tender, nondistended. No hepato-splenomegaly , or palpable masses. No guarding. MUSCULOSKELETAL: Extremities without clubbing, cyanosis, or edema. No joint tenderness, effusion, or edema noted. No calf tenderness. Negative Homans sign bilaterally. NEUROLOGICAL: Awake and alert. Cranial nerves II through XII intact. Motor and sensory grossly within normal limits. Five out of 5 muscle strength in all muscle groups. Normal speech. Laboratory Laboratory Tests Test 08/22/16 08/22/16 08/22/16 08/23/16 17:57 19:45 21:15 04:50 White Blood Count 20.7 12.7 Red Blood Count 4.47 3.54 Hemoglobin 11.8 9.4 Hematocrit 36.0 29.1 Mean Corpuscular Volume 80.6 82.1 Mean Corpuscular Hemoglobin 26.3 26.6 Mean Corpuscular Hemoglobin 32.6 32.4 Concent Red Cell Distribution Width 13.5 13.6 Platelet Count 315 263 Mean Platelet Volume 8.2 8.0 Neutrophils (%) (Auto) 87.7 79.6 Lymphocytes (%) (Auto) 4.9 11.3 Monocytes (%) (Auto) 6.2 7.8 Eosinophils (%) (Auto) 1.1 1.0 Basophils (%) (Auto) 0.1 0.3 Neutrophils # (Auto) 18.2 10.2 Lymphocytes # (Auto) 1.0 1.4 Monocytes # (Auto) 1.3 1.0 Eosinophils # (Auto) 0.2 0.1 Basophils # (Auto) 0.0 0.0 CBC Comment AUTO DIFF DIFF FINAL Differential Total Cells 100 Counted Neutrophils % (Manual) 80 Band Neutrophils % 8 Lymphocytes % 6 Monocytes % 6 Neutrophils # (Manual) 18.2 Differential Comment FINAL DIFF MANUAL Platelet Estimate NORMAL Platelet Morphology Comment NORMAL Red Cell Morphology Comment NORMAL Sodium Level 143 145 Potassium Level 3.3 2.8 Chloride Level 101 106 Carbon Dioxide Level 33.5 30.0 Anion Gap 9 9 Blood Urea Nitrogen 16 14 Creatinine 0.64 0.52 Estimat Glomerular Filtration 91 116 Rate Random Glucose 102 89 Calcium Level 7.9 6.8 Total Bilirubin 0.4 0.3 Aspartate Amino Transf 25 23 (AST/SGOT) Alanine Aminotransferase 14 14 (ALT/SGPT) Alkaline Phosphatase 94 82 Total Protein 6.5 5.0 Albumin 2.4 1.8 Lipase 52 Urine Color YELLOW Urine Turbidity SLIGHT Urine pH 5.5 Urine Specific [place] 1.024 Urine Protein TRACE Urine Glucose (UA) NEG Urine Ketones 15 Urine Occult Blood NEG Urine Nitrite NEG Urine Bilirubin NEG Urine Leukocyte Esterase SMALL Urine RBC 0-3 Urine WBC 6-8 Urine Squamous Epithelial 0-5 Cells Urine Amorphous Sediment SMALL Urine Bacteria FEW Urine Mucus OCC Microscopic Urinalysis Comment CULTURE INDICATED Lactic Acid Level 0.6 Protein Corrected Calcium 7.9 Magnesium Level 1.8 Date/Time Procedure Status Source Growth 08/22/16 21:18 Aerobic Blood Culture Received Blood Peripheral Pending 08/22/16 21:18 Anaerobic Blood Culture Received Blood Peripheral Pending 08/22/16 19:45 Urine Culture Received Urine Clean Catch Pending Result Diagram: 08/23/16 0450 08/23/16 0450 Imaging Last Impressions Abdomen/Pelvis CT 08/22/16 1857 Signed Impressions: Service Date/Time: Monday, August 22, 2016 19:20 - CONCLUSION: 1. Abnormal appearance of the bowel with dilatation of the small and large bowel. This appearance is unchanged from the prior exam. 2. Increased soft tissue density in the right lower quadrant. There appears to be a post-operative change in this region. There are also multiple enterolith seen. There is some induration seen in the mesenteric extending towards the right lateral abdominal and pelvic margins. All these findings are stable. Jimy Poole MD Assessment and Plan Problem List: (1) Crohn's disease ICD Code: K50.90 Status: Chronic Plan: Likely acute exacerbation with signs of sepsis (leukocytosis, hypothermia ), continue IV steroids Continue sulfasalazine and Remicade Continue stool evaluation for possible C. difficile (recent antibiotics) GI consult pending Continue metronidazole and ciprofloxacin IV (2) Leukocytosis ICD Code: D72.829 Status: Acute Plan: Improved (3) Abdominal pain ICD Code: R10.9 Status: Acute Plan: Secondary to Crohn's exacerbation, continue with pain management (4) Abnormal finding on urinalysis ICD Code: R82.90 Status: Acute Plan: Empiric Antibiotics continue, follow up cultures (5) Hypocalcemia ICD Code: E83.51 Status: Acute Plan: Replace and follow trend, check magnesium (6) Hypokalemia ICD Code: E87.6 Status: Acute Plan: Replace and follow trend, check magnesium Assessment and Plan Plan of care to be determined hospital course Full code Code Status Full code Discussed Condition With Patient Physician Certification 2 Midnight Certification Type: Admission for Inpatient Services Order for Inpatient Services The services are ordered in accordance with Medicare regulations or non- Medicare payer requirements, as applicable. In the case of services not specified as inpatient-only, they are appropriately provided as inpatient services in accordance with the 2-midnight benchmark. Estimated LOS (days): 3 3 days is the estimated time the patient will need to remain in the hospital, assuming treatment plan goals are met and no additional complications. Post-Hospital Plan: [place] Niki Mills MD Aug 23, 2016 10:46
[2016-08-23] MEDS ORDERED: CALCIUM GLUCONATE INJ 1 GM in SODIUM CHLORIDE 0.9% INJ 100 ML IV ONE (11:00)
[2016-08-23 12:00] VITALS: BP 100/60; PULSE 72; RESP 18; TEMP 97.7; O2SAT 92
[2016-08-23 15:36] LABS: C. DIFF EPI 027 PRESUMPTIVE NEGATIVE (NEGATIVE); C. DIFF TOXIN PCR NEGATIVE (NEGATIVE)
[2016-08-23 16:00] VITALS: BP 119/71; PULSE 77; RESP 17; TEMP 96.7; O2SAT 91
[2016-08-23 20:00] VITALS: BP 106/58; PULSE 78; RESP 18; TEMP 97.5; O2SAT 95
[2016-08-23 21:10] VITALS: O2SAT 93
[2016-08-23] MEDS: methylPREDNISolone SOD SUCC 40 MG/1 ML VIAL IV SCH (21:15)
[2016-08-24] VITALS (7 sets, daily range): BP systolic 92–134; BP diastolic 53–69; PULSE 65–77; RESP 16–18; TEMP 96.8–97.7; O2SAT 94–97
[2016-08-24] MEDS: SODIUM CHLOR 0.9% 1000 ML INJ 1,000 ML IV SCH ×3 (04:17→20:56)
[2016-08-24] MEDS: sulfaSALAzine 500 MG TAB PO SCH ×4 (04:17→20:56)
[2016-08-24] MEDS: metroNIDAZOLE 500 MG INJ 100 ML IV SCH ×3 (05:43→20:53)
[2016-08-24] MEDS: methylPREDNISolone SOD SUCC 40 MG/1 ML VIAL IV SCH ×3 (05:44→20:54)
--- NOTE | 2016-08-24 07:14 | MB ---
cc: MALIHA TA DATE OF CONSULTATION 08/23/2016 DATE OF 1945 ENDOSCOPIST Maliha Ta MD [employer]IMARY ASSOCI[employer] TE[employer] Dr. Richmond Meredith REASON FOR CONSULTATION 1. Abdominal pain. 2. Crohn's disease. HISTORY OF PRESENT ILLNESS This is a very pleasant 71-year-old female who has a significant medical history of Crohn's disease, underwent two previous resections, has been undergoing appropriate treatment using Remicade. Over the last several months she has been having issues in regards to her Crohn's disease. For evaluation she underwent recent endoscopy and a colonoscopy recently which was only significant for mild changes related to her Crohn's disease in her colon. Due to her symptoms, she was started on budesonide 9 mg per day about two weeks ago. Despite this she continues to have abdominal pain associated with nausea and vomiting. The pain is more on her lower quadrants, right greater than the left, sharp shooting, tenderness sensation, slightly worsened with eating and improved with rest. She continues to have some loose bowel movements and her symptoms have been ongoing at least for the past three days, worsening with diarrhea. Therefore she finally came back to the emergency room for further workup and management. PAST MEDICAL HISTORY Crohn's disease. PAST SURGICAL HISTORY 1. Bowel resection x 2. 2. Bilateral cataracts. 3. Bilateral breast implants. ALLERGIES CONTRAST. IODINE. SULFA. MEDICATIONS Please see MAR for complete and accurate list. Crohn's related medications include - 1. Remicade 10 mg IV every 8 weeks. 2. Azulfidine. 3. Budesonide. FAMILY HISTORY Mother with history of Crohn's disease. No GI malignancies. SOCIAL HISTORY Quit tobacco 10 years ago. Denies any alcohol or illicit drug use. REVIEW OF SYSTEMS A 12-point review of systems was obtained by me and found to be negative or noncontributory except for the above-mentioned in the HPI. PHYSICAL EXAMINATION VITAL SIGNS: Temperature 96.7, heart rate 77, respirations 16, blood pressure 119/71, O2 sat 91% on 2 liters. GENERAL: Alert, oriented, in no acute distress. HEENT: Mucosa moist and pink. Extraocular movements are intact. NECK: Supple, nontender, no JVD. No carotid bruits. No lymphadenopathy. CARDIOVASCULAR: Regular rate and rhythm. No murmurs heard. LUNGS: Clear to auscultation bilaterally. Nonlabored breath sounds. GASTROINTESTINAL: Soft. Minimal tenderness to palpation in the lower quadrants. No rebound appreciated. No guarding noted. Scars on the anterior abdomen. No hepatosplenomegaly appreciated. No CVA angle tenderness. MUSCULOSKELETAL: Normal upper and lower extremities. PSYCHIATRIC: Cooperative. Appropriate mood and affect. LYMPH NODES: No abnormal lymphadenopathy noted. NEURO: Alert, oriented. No focal deficits. LABORATORY DATA WBC 12.7, hemoglobin 9.4 MCV 82.1, platelet count of 263. Sodium 145, potassium 2.8, chloride 106, bicarb 30, lactic acid 0.6, calcium 6.8, corrected calcium 7.9, magnesium 1.8, total bili 0.3, alk phos 82, total protein 5.0, lipase 52. Urinalysis possibly positive with a leukocyte esterase positive, WBC positive and bacteria. C-diff negative. IMAGING STUDIES CT scan of abdomen and pelvis shows mild abnormal appearance of the small bowel, dilation of small and large intestine but unchanged from prior exam. There is a continued area of prominence with soft tissue density in the right mid to lower abdomen measuring 7 cm, what appears to be clips and what appears to be an enterolith in this region. The patient may have a status post resection of the distal small bowel/ascending colon with anastomosis of this region similar to prior exam. Small bowel dilated to 4.9 cm. Mild stranding in the lateral pelvic sidewalls. These are findings that are unchanged from previous exam. IMPRESSION 1. Abdominal pain with suspected Crohn's exacerbation. Agree with antibiotics. Recommend Cipro and Flagyl IV for now. 2. Recommend Solu-Medrol 20 mg IV q.8 hours. 3. Full liquid diet and slowly advance as tolerated with low roughage. PLAN Plans and goals upon discharge will be to, once tolerating diet well and pain is better controlled, then would recommend changing IV antibiotics to p.o. Cipro and Flagyl for a 7-day course and change IV Solu-Medrol 20 q. 8 hours to prednisone 40 mg once a day, then recommend taper slowly by 5 mg per week. The patient has budesonide at home and therefore would recommend holding off on using that for now. Given her exacerbation and her symptoms, I believe prednisone is currently warranted. The patient is agreeable to this slow taper. Once discharged the patient will need outpatient followup by Dr. Meredith and she is in consideration of further treatment change from Remicade to possible Cimzia but again this workup and treatment will be done outpatient. I had a long discussion with the patient. She is agreeable to this plan. Thank you for allowing me to participate in the care of this patient. Please do not hesitate to contact me for further questions. MD [place] Smiley/REGI /6:21 PM /8:34 AM
[2016-08-24 07:38] LABS: BASOPHIL % 0.3 % (0.0-2.0); EOSINOPHIL # 0.1 TH/MM3 (0-0.4); EOSINOPHIL % 0.5 % (0.0-4.0); HEMATOCRIT 30.4 % (35.0-46.0); HEMO FLAGS DIFF FINAL; LYMPHOCYTE # 1.3 TH/MM3 (1.0-4.8); MEAN CELL VOLUME 81.3 FL (80.0-100.0); MONO % 5.8 % (0.0-8.0); NEUT % 82.4 % (16.0-70.0); PLATELET COUNT 288 TH/MM3 (150-450); RED BLOOD COUNT 3.74 MIL/MM3 (4.00-5.30); RED CELL DISTRIBUTION WIDTH 13.7 % (11.6-17.2); WHITE BLOOD COUNT 12.1 TH/MM3 (4.0-11.0)
[2016-08-24 07:58] LABS: BICARBONATE 24.7 MEQ/L (21.0-32.0); POTASSIUM 3.6 MEQ/L (3.5-5.1)
[2016-08-24] MEDS: SODIUM CHLORIDE 0.9% FLUSH 10 ML FLUSH IV FLUSH SCH ×2 (09:56→20:55)
[2016-08-24] MEDS: CIPROFLOXACIN 400 MG PREMIX 200 ML IV SCH ×2 (09:56→20:50)
[2016-08-24] MEDS: FOLIC ACID 1 MG TAB PO SCH (09:56)
[2016-08-24] MEDS: TIMOLOL MALEATE 0.5% OPHT SOLN 5 ML BTL EACH EYE SCH ×2 (09:57→20:49)
--- NOTE | 2016-08-24 11:07 | HHI.PR ---
Subjective Remarks Patient seen today in follow-up for acute exacerbation of Crohn's. GI follow- up appreciated. Discussed with patient. Patient complaining of some insomnia and requests a Objective Vitals Vital Signs Date Time Temp Pulse Resp B/P Pulse Ox O2 Delivery O2 Flow Rate FiO2 08/24/16 08:00 97.3 77 18 113/60 95 08/24/16 07:50 94 21 08/24/16 00:00 97.1 68 16 92/53 94 08/23/16 22:32 18 08/23/16 21:10 93 21 08/23/16 20:00 97.5 78 18 106/58 95 08/23/16 16:00 96.7 77 17 119/71 91 08/23/16 12:00 97.7 72 18 100/60 92 08/23/16 11:56 20 I/O 08/23/16 08/23/16 08/23/16 08/24/16 08/24/16 08/24/16 07:00 15:00 23:00 07:00 15:00 23:00 Intake Total 250 ml 240 ml 180 ml 1600 ml Balance 250 ml 240 ml 180 ml 1600 ml Intake Oral 240 ml 180 ml IV Total 250 ml 1600 ml # Voids 3 1 1 # Bowel Movements 3 0 0 Result Diagram: 08/24/16 0648 08/24/16 0648 Objective Remarks GENERAL: This is a well-nourished, well-developed patient, in no apparent distress. CARDIOVASCULAR: Regular rate and rhythm without murmurs, gallops, or rubs. RESPIRATORY: Clear to auscultation. Breath sounds equal bilaterally. No wheezes , rales, or rhonchi. GASTROINTESTINAL: Abdomen soft, mildly tender in the right lower quadrant, nondistended. Normal active bowel sounds MUSCULOSKELETAL: Extremities without clubbing, cyanosis, or edema. NEURO: Alert & Oriented x4 to person, place, time, situation. Moves all ext x4 A/P Problem List: (1) Crohn's disease ICD Code: K50.90 Status: Chronic Plan: Likely acute exacerbation with signs of sepsis (leukocytosis, hypothermia ), continue IV steroids Continue sulfasalazine and Remicade Negative C. difficile GI consult appreciated Continue metronidazole and ciprofloxacin IV (2) Leukocytosis ICD Code: D72.829 Status: Resolved Plan: Improved (3) Abdominal pain ICD Code: R10.9 Status: Acute Plan: Improved Secondary to Crohn's exacerbation, continue with pain management (4) Abnormal finding on urinalysis ICD Code: R82.90 Status: Resolved Plan: Mixed gary on urine, no further workup (5) Hypocalcemia ICD Code: E83.51 Status: Resolved Plan: Improved after replacement (6) Hypokalemia ICD Code: E87.6 Status: Resolved Plan: Improved after replacement Assessment and Plan Add Ambien when necessaryfor insomnia Discharge Planning Likely discharge in a.m. on oral antibiotics and oral steroid taper Niki Mills MD Aug 24, 2016 11:07
[2016-08-24] MEDS ORDERED: ZOLPIDEM TARTRATE 10 MG TAB PO PRN (11:15)
[2016-08-25] VITALS: BP 112/64; PULSE 68; RESP 16; TEMP 96.2; O2SAT 95
[2016-08-25] MEDS: sulfaSALAzine 500 MG TAB PO SCH ×2 (04:00→09:14)
[2016-08-25] MEDS: metroNIDAZOLE 500 MG INJ 100 ML IV SCH (04:35)
[2016-08-25] MEDS: methylPREDNISolone SOD SUCC 40 MG/1 ML VIAL IV SCH (04:35)
[2016-08-25 08:00] VITALS: BP 116/61; PULSE 72; RESP 18; TEMP 97.3; O2SAT 96
[2016-08-25] MEDS: TIMOLOL MALEATE 0.5% OPHT SOLN 5 ML BTL EACH EYE SCH (09:00)
[2016-08-25] MEDS: SODIUM CHLORIDE 0.9% FLUSH 10 ML FLUSH IV FLUSH SCH (09:00)
[2016-08-25] MEDS: FOLIC ACID 1 MG TAB PO SCH (09:14)
[2016-08-25] MEDS: SODIUM CHLOR 0.9% 1000 ML INJ 1,000 ML IV SCH (09:15)
[2016-08-25] MEDS: CIPROFLOXACIN 400 MG PREMIX 200 ML IV SCH (09:15)
[2016-08-25 10:16] VITALS: O2SAT 94
[2016-08-25] MEDS ORDERED: CIPR500T2 PO (11:52)
[2016-08-25] MEDS ORDERED: METR500T10 PO (11:52)
[2016-08-25] MEDS ORDERED: PRED20 PO (11:52)
--- NOTE | 2016-08-25 11:52 | HHI.DCPOC ---
Discharge Care Plan Diagnosis: (1) Crohn's disease Goals to Promote Your Health * To prevent worsening of your condition and complications * To maintain your health at the optimal level Directions to Meet Your Goals Take your medications as prescribed Follow your dietary instruction Follow activity as directed Keep your appointments as scheduled Take your immunizations and boosters as scheduled If your symptoms worsen call your PCP, if no PCP go to Urgent Care Center or Emergency Room Smoking is Dangerous to Your Health. Avoid second hand smoke Call the 24-hour hour crisis hotline for domestic abuse at Niki Mills MD Aug 25, 2016 11:52
--- NOTE | 2016-08-25 11:53 | HHI.DS ---
Discharge Summary Admission Date Aug 22, 2016 at 21:07 Discharge Date: Aug 25, 2016 Admitting Diagnosis Crohn's disease flare; intractable pain (1) Crohn's disease ICD Code: K50.90 (2) Leukocytosis ICD Code: D72.829 (3) Abdominal pain ICD Code: R10.9 (4) Abnormal finding on urinalysis ICD Code: R82.90 (5) Hypocalcemia ICD Code: E83.51 (6) Hypokalemia ICD Code: E87.6 Procedures none Brief History - From Admission Patient's 71-year-old female with a history of Crohn's and plantar bowel disease who is complaining of Increased abdominal pain and back pain and nausea as well as intermittent constipation and diarrhea for the last 3 days. Patient says this is similar to Crohn's exacerbation and her pain was severe and now localized on the right side. It is improved with IV antibiotics and IV narcotics CBC/BMP: 08/24/16 0648 08/24/16 0648 Significant Findings Laboratory Tests Test 08/22/16 08/22/16 08/23/16 08/24/16 17:57 19:45 04:50 06:48 White Blood Count 20.7 TH/MM3 12.7 TH/MM3 12.1 TH/MM3 (4.0-11.0) (4.0-11.0) (4.0-11.0) Mean Corpuscular Hemoglobin 26.3 PG 26.6 PG 26.0 PG (27.0-34.0) (27.0-34.0) (27.0-34.0) Neutrophils (%) (Auto) 87.7 % 79.6 % 82.4 % (16.0-70.0) (16.0-70.0) (16.0-70.0) Lymphocytes (%) (Auto) 4.9 % (9.0-44.0) Neutrophils # (Auto) 18.2 TH/MM3 10.2 TH/MM3 10.0 TH/MM3 (1.8-7.7) (1.8-7.7) (1.8-7.7) Monocytes # (Auto) 1.3 TH/MM3 1.0 TH/MM3 (0-0.9) (0-0.9) Neutrophils % (Manual) 80 % (16-70) Band Neutrophils % 8 % (0-6) Lymphocytes % 6 % (9-44) Neutrophils # (Manual) 18.2 TH/MM3 (1.8-7.7) Potassium Level 3.3 MEQ/L 2.8 MEQ/L (3.5-5.1) (3.5-5.1) Carbon Dioxide Level 33.5 MEQ/L (21.0-32.0) Calcium Level 7.9 MG/DL 6.8 MG/DL 7.8 MG/DL (8.5-10.1) (8.5-10.1) (8.5-10.1) Albumin 2.4 GM/DL 1.8 GM/DL (3.4-5.0) (3.4-5.0) Lipase 52 U/L (73-393) Urine Ketones 15 mg/dL (NEG) Urine Leukocyte Esterase SMALL (NEG) Urine WBC 6-8 /hpf (0-5) Urine Bacteria FEW /hpf (NONE) Red Blood Count 3.54 MIL/MM3 3.74 MIL/MM3 (4.00-5.30) (4.00-5.30) Hemoglobin 9.4 GM/DL 9.7 GM/DL (11.6-15.3) (11.6-15.3) Hematocrit 29.1 % 30.4 % (35.0-46.0) (35.0-46.0) Protein Corrected Calcium 7.9 MG/DL (8.5-10.1) Total Protein 5.0 GM/DL (6.4-8.2) Sodium Level 146 MEQ/L (136-145) Chloride Level 111 MEQ/L (98-107) Blood Urea Nitrogen 6 MG/DL (7-18) Random Glucose 112 MG/DL (74-106) Imaging Last Impressions Abdomen/Pelvis CT 08/22/16 6521 Signed Impressions: Service Date/Time: Monday, August 22, 2016 19:20 - CONCLUSION: 1. Abnormal appearance of the bowel with dilatation of the small and large bowel. This appearance is unchanged from the prior exam. 2. Increased soft tissue density in the right lower quadrant. There appears to be a post-operative change in this region. There are also multiple enterolith seen. There is some induration seen in the mesenteric extending towards the right lateral abdominal and pelvic margins. All these findings are stable. Jimy Poole MD PE at Discharge GENERAL: This is a well-nourished, well-developed patient, in no apparent distress. CARDIOVASCULAR: Regular rate and rhythm without murmurs, gallops, or rubs. RESPIRATORY: Clear to auscultation. Breath sounds equal bilaterally. No wheezes , rales, or rhonchi. GASTROINTESTINAL: Abdomen soft, mildly tender in the right lower quadrant, nondistended. Normal active bowel sounds MUSCULOSKELETAL: Extremities without clubbing, cyanosis, or edema. NEURO: Alert & Oriented x4 to person, place, time, situation. Moves all ext x4 Pt update on day of discharge Patient seen today in follow-up for Crohn's flare. Doing much better. Good bowel movements and pain is minimal. Discharge plans discussed with patient Hospital Course Patient is a 71-year-old female with a known history of Crohn's patient had exacerbation of the same and was treated with IV antibiotics, IV steroids and IV hydration. Pain improved and patient was also seen by the dietetics teacher who recommended continuing current management Pt Condition on Discharge: Good Discharge Disposition: Discharge Home Discharge Time: > 30 minutes Discharge Instructions DIET: Follow Instructions for: As Tolerated, No Restrictions, Low Fiber Diet Activities you can perform: Regular-No Restrictions Niki Mills MD Aug 25, 2016 11:53
[2016-08-25] MEDS ORDERED: HYDR-3516 PO (11:54)
== END 2016-08-25 12:43 | disposition home or self-care (01) | DRG 387 ==
LOC: PHED 16:52 → PHEDA 21:07 → PH3A 22:58
PROVIDERS: ADMIT Hospitalist; ATTEND Hospitalist
DX: K50.90 Crohn's disease, unspecified, without complications (principal); E83.51 Hypocalcemia; D72.829 Elevated white blood cell count, unspecified; M54.9 Dorsalgia, unspecified; Z87.891 Personal history of nicotine dependence; Z88.2 Allergy status to sulfonamides; Z88.8 Allergy status to other drugs, medicaments and biological substances; Z91.041 Radiographic dye allergy status; Z80.1 Family history of malignant neoplasm of trachea, bronchus and lung; Z83.79 Family history of other diseases of the digestive system; E87.6 Hypokalemia; Z98.82 Breast implant status; R82.90 Unspecified abnormal findings in urine; G47.00 Insomnia, unspecified
CPT/HCPCS: 74176; 76937; 80048; 80053; 81001; 83605; 83690; 83735; 84443; 85007; 85025; 85027; 87040; 87086; 87205; 87328; 87493; 87506; 96361; 96374; 96375; 96376; J0610; J0744; J1170; J2405; J2920; J2930; J3480; J7030

== ENCOUNTER 2016-09-23 18:08 | Emergency (ER) | payer MEDICARE, BC ==
[~2016-09-23] VITALS: Ht 165.1 cm; Wt 46.0 kg
[~2016-09-23 18:08] MED LIST changes: -FOLI5CAP PO; +FOLI800T PO; +HYDR-3516 PO; -INFL100P; +INFL100P IV; +TIMO0.5S30 RIGHT EYE; -TIMO0.5S5 EACH EYE; -TRAV0.00 EACH EYE; +VITA10002 PO; +VITATAB11 PO; -ZOFR4TAB3 SL
[2016-09-23 18:15] VITALS: BP 97/59; PULSE 88; RESP 16; TEMP 97.8; O2SAT 98
[2016-09-23] MEDS ORDERED: SODIUM CHLOR 0.9% 1000 ML INJ 1,000 ML IV SCH (18:35)
--- NOTE | 2016-09-23 18:40 | PD ---
HPI Chief Complaint: GI Complaint Time Seen by Provider: 18:27 Travel History International Travel<30 days: No Contact w/Intl Traveler<30days: No Traveled to known affect area: No History of Present Illness HPI Patient is a 71-year-old female presents emergency department for evaluation of lower quadrant abdominal cramping for the past 2 days. Patient states she has a history of Crohn's disease and feels like any other flareups ever had. She's been taking Waves at home without significant relief. Patient states she was just admitted to the hospital and was placed on antibiotic steroids and she finished her steroid taper approximately 2 weeks ago. She has not had chance to follow with her primary care physician as of yet. Denies any blood in stool denies any diarrhea denies any fevers. Review the records shows the patient on last minute had a white count 20,000 had a CAT scan of her abdomen which showed no obvious abnormalities. PFSH Past Medical History Arthritis: No Asthma: No Autoimmune Disease: No Anxiety: No Depression: No Heart Rhythm Problems: No Cancer: No Cardiovascular Problems: No High Cholesterol: No Chest Pain: No Congestive Heart Failure: No COPD: No Cerebrovascular Accident: No Diabetes: No Diminished Hearing: No Endocrine: No Gastrointestinal Disorders: Yes (CROHN'S) GERD: No Glaucoma: Yes Genitourinary: Yes Hepatitis: No Hiatal Hernia: No Kidney Stones: Yes Musculoskeletal: No Neurologic: No Psychiatric: No Reproductive: No Respiratory: No Immunizations Current: No Migraines: No Renal Failure: No Seizures: No Sleep Apnea: No Thyroid Disease: No Ulcer: No Tetanus Vaccination: > 5 Years Influenza Vaccination: Yes ?: Not Menopausal: Yes Past Surgical History Abdominal Surgery: Yes (BOWEL RESECTION 1982, 1988) AICD: No Arteriovenous Shunt: No Body Medical Devices: BREAST IMPLANTS Cardiac Surgery: No Ear Surgery: No Endocrine Surgery: No Eye Surgery: Yes (cataracts) Genitourinary Surgery: No Gynecologic Surgery: No Insulin Pump: No Joint Replacement: No Oral Surgery: Yes (DENTURES) Pacemaker: No Thoracic Surgery: No Other Surgery: Yes Social History Alcohol Use: Yes (OCC) Tobacco Use: No Substance Use: No Allergies-Medications (Allergen,Severity, Reaction): Coded Allergies: Contrast Media (Verified Allergy, Intermediate, Hives, 09/23/16) Iodine (Verified Allergy, Intermediate, Hives, 09/23/16) Sulfa (Verified Allergy, Intermediate, Nausea/Vomiting, 09/23/16) Reported Meds & Prescriptions Reported Meds & Active Scripts Active Waves (Hydrocodone-Acetaminophen) 5-325 mg Tab 1 Tab PO Q6H PRN Zofran Odt (Ondansetron Odt) 4 Mg Tab 4 Mg SL Q6HR PRN Medrol Dosepak (Methylprednisolone) 4 Mg Dspk 4 Mg PO DIRECTED Per Pharmacist direction Reported Vitamin B Complex (B-Complex Vitamins) 1 Tab 1 Tab PO DAILY Vitamin B-12 (Cyanocobalamin) 1,000 Mcg Tab 1,000 Mcg PO DAILY Timolol Opth Drops 0.5 % Soln 1 Drop RIGHT EYE DAILY Azulfidine (Sulfasalazine) 500 Mg Tab 500 Mg PO Q6H Remicade Inj (Infliximab) 100 Mg Inj 500 Mg IV [id number] Folic Acid 800 Mcg Tab 1 Mg PO DAILY Review of Systems Except as stated in HPI: all other systems reviewed are Neg Physical Exam Narrative GENERAL: Well-developed well-nourished uncomfortable appearance. SKIN: Focused skin assessment warm/dry. HEAD: Atraumatic. Normocephalic. EYES: Pupils equal and round. No scleral icterus. No injection or drainage. ENT: No nasal bleeding or discharge. Mucous membranes pink and moist. NECK: Trachea midline. No JVD. CARDIOVASCULAR: Regular rate and rhythm. No murmur appreciated. RESPIRATORY: No accessory muscle use. Clear to auscultation. Breath sounds equal bilaterally. GASTROINTESTINAL: Abdomen soft, non-tender, nondistended. Voluntary guarding only. Hepatic and splenic margins not palpable. No rebound no percussive tenderness. Normal active bowel sounds. MUSCULOSKELETAL: No obvious deformities. No clubbing. No cyanosis. No edema. NEUROLOGICAL: Awake and alert. No obvious cranial nerve deficits. Motor grossly within normal limits. Normal speech. PSYCHIATRIC: Appropriate mood and affect; insight and judgment normal. Data Data Last Documented VS Vital Signs Date Time Temp Pulse Resp B/P Pulse Ox O2 Delivery O2 Flow Rate FiO2 09/23/16 19:29 78 16 133/61 96 Room Air 09/23/16 18:15 97.8 Orders Complete Blood Count With Diff (09/23/16 18:35) Comprehensive Metabolic Panel (09/23/16 18:35) Lipase (09/23/16 18:35) Lactic Acid (09/23/16 18:35) Urinalysis - C+S If Indicated (09/23/16 18:35) Iv Access Insert/Monitor (09/23/16 18:35) Ecg Monitoring (09/23/16 18:35) Oximetry (09/23/16 18:35) Ondansetron Inj (Zofran Inj) (09/23/16 18:45) Sodium Chlor 0.9% 1000 Ml Inj (Ns 1000 M (09/23/16 18:35) Sodium Chloride 0.9% Flush (Ns Flush) (09/23/16 18:45) Morphine Inj (Morphine Inj) (09/23/16 18:45) Labs Laboratory Tests Test 09/23/16 09/23/16 18:45 20:03 White Blood Count 21.9 TH/MM3 Red Blood Count 4.88 MIL/MM3 Hemoglobin 13.0 GM/DL Hematocrit 39.7 % Mean Corpuscular Volume 81.4 FL Mean Corpuscular Hemoglobin 26.7 PG Mean Corpuscular Hemoglobin 32.8 % Concent Red Cell Distribution Width 14.6 % Platelet Count 496 TH/MM3 Mean Platelet Volume 8.0 FL Neutrophils (%) (Auto) 83.7 % Lymphocytes (%) (Auto) 11.2 % Monocytes (%) (Auto) 2.5 % Eosinophils (%) (Auto) 1.2 % Basophils (%) (Auto) 1.4 % Neutrophils # (Auto) 18.3 TH/MM3 Lymphocytes # (Auto) 2.5 TH/MM3 Monocytes # (Auto) 0.5 TH/MM3 Eosinophils # (Auto) 0.3 TH/MM3 Basophils # (Auto) 0.3 TH/MM3 CBC Comment AUTO DIFF Differential Total Cells 100 Counted Neutrophils % (Manual) 79 % Band Neutrophils % 5 % Lymphocytes % 13 % Monocytes % 2 % Eosinophils % 1 % Neutrophils # (Manual) 18.4 TH/MM3 Differential Comment FINAL DIFF MANUAL Platelet Estimate HIGH Platelet Morphology Comment NORMAL Red Cell Morphology Comment NORMAL Sodium Level 136 MEQ/L Potassium Level 4.7 MEQ/L Chloride Level 102 MEQ/L Carbon Dioxide Level 27.4 MEQ/L Anion Gap 7 MEQ/L Blood Urea Nitrogen 16 MG/DL Creatinine 0.92 MG/DL Estimat Glomerular Filtration 60 ML/MIN Rate Random Glucose 94 MG/DL Lactic Acid Level 0.8 mmol/L Calcium Level 8.5 MG/DL Total Bilirubin 0.2 MG/DL Aspartate Amino Transf 48 U/L (AST/SGOT) Alanine Aminotransferase 26 U/L (ALT/SGPT) Alkaline Phosphatase 111 U/L Total Protein 7.6 GM/DL Albumin 2.9 GM/DL Lipase 242 U/L Urine Color YELLOW Urine Turbidity CLEAR Urine pH 5.5 Urine Specific [place] 1.023 Urine Protein NEG mg/dL Urine Glucose (UA) NEG mg/dL Urine Ketones NEG mg/dL Urine Occult Blood NEG Urine Nitrite NEG Urine Bilirubin NEG Urine Leukocyte Esterase TRACE Urine RBC 0-3 /hpf Urine WBC 6-8 /hpf Urine Squamous Epithelial 6-8 /hpf Cells Urine Bacteria OCC /hpf Microscopic Urinalysis Comment CULT NOT INDICATED MDM Medical Decision Making Medical Screen Exam Complete: Yes Emergency Medical Condition: Yes Differential Diagnosis Crohn's flare, acute abdomen seems unlikely, electrolyte abnormality, Narrative Course Patient roomed in the emergency Department, white blood cell count is elevated at 20,000. Review of records shows it was 20,000 her last admission but did decline by the time of discharge. Patient reassessed after morphine and Zofran and is feeling much better. I discussed with her that she did just have a CAT scan a few weeks ago and we could consider doing another CAT scan at this time. I also discussed with her that most physicians would consider doing a CAT scan on her given her age with any type of abdominal pain. I discussed that an option is to withhold the CAT scan at this time because her abdomen is benign and she is feeling better. However at this point I wouldn't be able to exclude any other pathology. At this point she would like to hold off and try symptomatic management home. I recommended that with any fever or any blood in the stool she return to the emergency Department for consideration for CAT scan and she verbalized understanding and agreement. She seems very reliable and I think she can try outpatient management at this time. I've written a prescription of pain medicine as well as a steroid taper and discussed that she needs to call her primary care physician first thing in the morning. Diagnosis Primary Impression: Abdominal pain Additional Impression: Crohn's disease Med/Other Pt SpecificInfo: Prescription(s) given Scripts Hydrocodone-Acetaminophen (Waves)5-325 mg Tab1 Tab PO Q6H PRN (PAIN) #10 TAB Ref 0 Prov:Earle Powers MD 09/23/16 Ondansetron Odt (Zofran Odt)4 Mg Tab4 Mg SL Q6HR PRN (Nausea/Vomiting) #30 TAB Ref 0 Prov:Earle Powers MD 09/23/16 Methylprednisolone Dosepak (Medrol Dosepak)4 Mg Dspk4 Mg PO DIRECTED #1 DSPK Ref 0 Per Pharmacist direction Prov:Earle Powers MD 09/23/16 Disposition: 01 DISCHARGE HOME Condition: Stable Earle Powers MD Sep 23, 2016 18:40
[2016-09-23 18:41] VITALS: O2SAT 98
[2016-09-23] MEDS ORDERED: MORPHINE SULFATE 8 MG/ML INJ IV PUSH ONE (18:45)
[2016-09-23] MEDS ORDERED: SODIUM CHLORIDE 0.9% FLUSH 10 ML FLUSH IV FLUSH PRN (18:45)
[2016-09-23] MEDS ORDERED: ONDANSETRON HCL 4 MG/2 ML VIAL IVP ONE (18:45)
[2016-09-23 18:51] LABS: AUTOMATED NEUTROPHIL # 18.3 TH/MM3 (1.8-7.7); BASOPHIL # 0.3 TH/MM3 (0-0.2); BASOPHIL % 1.4 % (0.0-2.0); EOSINOPHIL # 0.3 TH/MM3 (0-0.4); EOSINOPHIL % 1.2 % (0.0-4.0); HEMATOCRIT 39.7 % (35.0-46.0); LYMPH % 11.2 % (9.0-44.0); LYMPHOCYTE # 2.5 TH/MM3 (1.0-4.8); MEAN CELL VOLUME 81.4 FL (80.0-100.0); MEAN CORPUSCULAR HEMOGLOBIN 26.7 PG (27.0-34.0); MEAN CORPUSCULAR HGB CONC 32.8 % (32.0-36.0); MONO % 2.5 % (0.0-8.0); NEUT % 83.7 % (16.0-70.0); PLATELET COUNT 496 TH/MM3 (150-450); RED BLOOD COUNT 4.88 MIL/MM3 (4.00-5.30); RED CELL DISTRIBUTION WIDTH 14.6 % (11.6-17.2); WHITE BLOOD COUNT 21.9 TH/MM3 (4.0-11.0)
[2016-09-23 18:53] LABS: HEMO FLAGS AUTO DIFF
[2016-09-23 19:00] LABS: CHLORIDE 102 MEQ/L (98-107); POTASSIUM 4.7 MEQ/L (3.5-5.1); SODIUM (NA) 136 MEQ/L (136-145)
[2016-09-23 19:03] LABS: ANION GAP 7 MEQ/L (5-15); BICARBONATE 27.4 MEQ/L (21.0-32.0)
[2016-09-23 19:04] LABS: BLOOD UREA NITROGEN 16 MG/DL (7-18)
[2016-09-23 19:06] LABS: ALT (GPT) 26 U/L (10-53); AST (GOT) 48 U/L (15-37)
[2016-09-23 19:07] LABS: BANDS 5 % (0-6); EOSINOPHILS 1 % (0-4); GLOMERULAR FILTRATION RATE 60 ML/MIN (>89); NEUTROPHIL # MANUAL DIFF 18.4 TH/MM3 (1.8-7.7); POLYS (SEG NEUTROPHILS) 79 % (16-70); WBC DIFF SAMPLE 100
[2016-09-23 19:08] LABS: PLATELET ESTIMATE SMEAR HIGH (NORMAL); PLATELET MORPHOLOGY NORMAL (NORMAL); SCAN/DIFF FINAL DIFF MANUAL; TOTAL BILIRUBIN ADULT 0.2 MG/DL (0.2-1.0)
[2016-09-23 19:09] LABS: ALKALINE PHOSPHATASE 111 U/L (45-117)
[2016-09-23 19:29] VITALS: BP 133/61; PULSE 78; RESP 16; O2SAT 96
[2016-09-23 20:10] LABS: BLOOD, URINE NEG (NEG); GLUCOSE,URINE NEG (NEG); KETONE, URINE NEG (NEG); NITRITE,URINE NEG (NEG); PH, URINE 5.5 (5.0-8.5)
[2016-09-23 20:14] LABS: URINE COLOR YELLOW (YELLW/STRAW)
[2016-09-23 20:18] LABS: BACTERIA, URINE OCC /hpf; COMMENT (UR) CULT NOT INDICATED; CULTURE IF INDICATED CULT NOT INDICATED; RBC, URINE 0-3 /hpf (0-3)
[2016-09-23] MEDS ORDERED: NORC5TAB PO (20:45)
[2016-09-23] MEDS ORDERED: MEDR4PAK PO (20:45)
[2016-09-23] MEDS ORDERED: ZOFR4TAB3 SL (20:45)
== END 2016-09-23 21:19 | disposition home or self-care (01) ==
LOC: PHED 18:08
DX: K50.90 Crohn's disease, unspecified, without complications (principal)
CPT/HCPCS: 80053; 81001; 83605; 83690; 85007; 85027; 96361; 96374; 96375; 99284; J2270; J2405; J7030

== ENCOUNTER 2016-12-23 12:51 | Day surgery (SDC) | payer MEDICARE, BC ==
[~2016-12-23 12:51] MED LIST changes: -HYDR-3516 PO; -INFL100P IV; +MEDR4PAK PO; +NORC5TAB PO; +VANC1000P IV; +ZOFR4TAB3 SL
[2016-12-23 13:00] VITALS: BP 124/69; PULSE 79; RESP 20; TEMP 97.7; O2SAT 97
[2016-12-23] MEDS ORDERED: VEDO1INJ IV (13:17)
[2016-12-23] MEDS ORDERED: CYAN1000P IM (13:17)
[2016-12-23 14:05] VITALS: BP 124/67; PULSE 70; RESP 20; TEMP 97.5; O2SAT 97
--- NOTE | 2016-12-23 14:19 | PD.RAD ---
Radiology Post PICC Prog Note Pre Procedure Diagnosis: (1) Leukocytosis Post Procedure Diagnosis: (1) Leukocytosis Procedure: Right PICC line placement Procedure Date: Dec 23, 2016 Supervising Radiologist Garrett Rangel Proceduralist/Assist: Rita Diggs, RT(R)(), Robert Diaz, RT(R) Device Side: Right [place]gasque: 4 single lumen cm: 39 Catheter: Power PICC Plan of Activity Patient to Unit: ROPU Patient Condition: Good PICC line can be used immediately Garrett Rangel MD Dec 23, 2016 14:19
[2016-12-23] MEDS ORDERED: SODIUM CHLORIDE 0.9% FLUSH 10 ML FLUSH IVF PRN ×2 (14:30)
--- NOTE | 2016-12-23 15:53 | RADRPT ---
EXAM DATE/TIME: 12/23/2016 13:56 [facility] COMPARISON: No previous studies available for comparison. INDICATIONS : Patient presents with left leg cellulitis in need of peripheral intravenous line placement for medica tion administration. MEDICAL HISTORY : Chrohn's Glaucoma SURGICAL HISTORY : Bette Intestinal sx ENCOUNTER: Initial ACUITY: 2 months PAIN SCORE: 0/10 LOCATION: N/A FLUORO TIME: 0.2 minutes IMAGE SERIES: 1 ACCESS: Right basilic vein DEVICE(S): 1.) 4 Stateless single lumen 39 cm Xcela Power PICC PROCEDURE : 1. Ultrasound guidance for venous catheterization. 2. Fluoroscopic guidance. 3. Ultrasound & fluoroscopic guided central venous Power PICC line placement. The risks, benefits and alternatives to the procedure were explained and verbal and written consent w as obtained. The site was prepped in sterile fashion. Full sterile technique was used, including ca p, mask, sterile gloves and gown and a large sterile sheet. Hand hygiene and 2% chlorhexidine prep w as utilized per protocol for cutaneous antisepsis with appropriate dry time for site. Sterile gel a nd sterile probe cover were utilized for ultrasound guidance. The skin and subcutaneous tissues wer e infiltrated with local anesthetic solution. Under direct ultrasound guidance, a suitable vein was accessed and a measuring guidewire was introduc ed and positioned in the central venous system. The ultrasound images depicting access guidance were saved and stored to PACS for permanent record. A Power Injectable PICC line was cut to prescribed length and introduced, positioned with tip at the cavoatrial junction level. The line was flushed and secured per protocol. CONCLUSION: 1. Uncomplicated central venous Power PICC line placement. 2. The PICC line can be used immediately. Gamal Doll MD on December 23, 2016 at 15:45 Board Certified Radiologist. This report was verified electronically.
[2016-12-24] MEDS ORDERED: SODIUM CHLORIDE 0.9% FLUSH 10 ML FLUSH IVF SCH (09:00)
== END 2016-12-23 14:32 | disposition home or self-care (01) ==
LOC: HROP 12:51 → HRIP 12:55 → HROP 14:32
PROVIDERS: ATTEND Specialist
DX: Z45.2 Encounter for adjustment and management of vascular access device (principal); L03.116 Cellulitis of left lower limb
CPT/HCPCS: 36569; 76937; 77001; C1751; J1642

== ENCOUNTER 2017-12-16 08:13 | Inpatient (IN) ==
[2017-12-16] MEDS ORDERED: Morphine Sulfate Inj 8 MG/ML Vial IV.PUSH ONE (08:38)
[2017-12-16] MEDS ORDERED: Sod Chloride 0.9% Inj 1,000 ML IV.CONT SCH (08:45)
--- NOTE | 2017-12-16 08:45 | ED ---
HPI General Chief complaint: Abdominal Pain Stated complaint: abd pain x today Time Seen by Provider: 12/16/17 08:25 Source: patient Mode of arrival: ambulatory Limitations: no limitations History of Present Illness HPI narrative: This 72-year-old female is complaining of lower abdominal pain. She says the pain started around 630 this morning. It is been quite severe. It is fairly constant at a rate of 6 with occasional exacerbations at 10. She has had somewhat similar pain in the past. She has a history of Crohn's for over 40 years. She has had 2 bowel resections in the past. She sees Dr. Meredith and has had a colonoscopy within the past year. She has been on multiple different medications. She had been on Remicade is currently on Stilara. She has had a very itchy rash which is said to be eczema over her back. She took a tramadol at 630 but this is not helped her pain. She is nauseated she has not vomited or had diarrhea Related Data Home Medications Medication Instructions Recorded Confirmed folic acid 1 mg PO DAILY 12/16/17 12/16/17 sulfasalazine [Azulfidine] 1 g PO DAILY 12/16/17 12/16/17 tramadol 50 mg PO Q4-6H PRN 12/16/17 12/16/17 ustekinumab [Stelara] 90 mg SUBCUT Q8W 12/16/17 12/16/17 Allergies Allergy/AdvReac Type Severity Reaction Status Date / Time diatrizoate meglumine Allergy Severe Hives Verified 12/16/17 08:28 gadobenic acid Allergy Severe Hives Verified 12/16/17 08:28 gadodiamide Allergy Severe Hives Verified 12/16/17 08:28 gadoteridol Allergy Severe Hives Verified 12/16/17 08:28 iodine Allergy Severe Hives Verified 12/16/17 08:28 iodixanol Allergy Severe Hives Verified 12/16/17 08:28 iohexol Allergy Severe Hives Verified 12/16/17 08:28 potassium iodide Allergy Severe Hives Verified 12/16/17 08:28 povidone-iodine Allergy Severe Hives Verified 12/16/17 08:28 sodium iodide Allergy Severe Hives Verified 12/16/17 08:28 sodium iodide Allergy Severe Hives Verified 12/16/17 08:28 Sulfa (Sulfonamide AdvReac Intermediate Nausea/Vomi Verified 12/16/17 08:28 Antibiotics) ting Review of Systems ROS: all other systems reviewed are negative [facility] Medical History Medical History Crohns disease (Acute) Eczema (Acute) Surgical History Surgical History History of bowel resection (Acute) History of cholecystectomy (Acute) Social History Social History Substance History: No History of Abuse Second Hand Smoke Exposure: Yes Smoking Status: Former smoker How Often Do You Have a Drink Containing Alcohol: Never Recent Travel in [facility] within the Last 8 Weeks: No Recent Out of Country Travel within the Last 8 Weeks: No Immunization History Tetanus Immunization: Unsure Exam Narrative Exam Narrative: GENERAL: Thin female in moderate pain SKIN: Focused skin assessment warm/dry. HEAD: Atraumatic. Normocephalic. EYES: Pupils equal and round. No scleral icterus. No injection or drainage. ENT: No nasal bleeding or discharge. Mucous membranes pink and moist. NECK: Trachea midline. No JVD. CARDIOVASCULAR: Regular rate and rhythm. No murmur appreciated. RESPIRATORY: No accessory muscle use. Clear to auscultation. Breath sounds equal bilaterally. GASTROINTESTINAL: Abdomen soft, There is some lower abdominal tenderness with mild distention. Bowel sounds are diminished. No abnormal masses are felt there is several lower abdominal scars MUSCULOSKELETAL: No obvious deformities. No clubbing. No cyanosis. No edema. NEUROLOGICAL: Awake and alert. No obvious cranial nerve deficits. Motor grossly within normal limits. Normal speech. PSYCHIATRIC: Appropriate mood and affect; insight and judgment normal. Course Initial Documented Vital Signs Temperature 97.6 F 12/16/17 08:16 Pulse Rate 78 12/16/17 08:16 Respiratory Rate 18 12/16/17 08:16 Blood Pressure 122/58 L 12/16/17 08:16 Pulse Oximetry 97 12/16/17 08:16 Last Documented Vital Signs Temperature 97.6 F 12/16/17 08:16 Pulse Rate 66 12/16/17 09:33 Respiratory Rate 14 12/16/17 09:33 Blood Pressure 89/47 L 12/16/17 09:33 Pulse Oximetry 99 12/16/17 09:33 Medical Decision Making MDM Narrative Medical decision making narrative: CT scan is concerning for possible bowel obstruction. Patient has received IV fluids and morphine with some improvement of her pain. I have discussed the case with Dr. Winchester who is covering for Dr. Meredith.He recommends Cipro and Flagyl. And surgical consultation. Patient will be admitted Medical Screen Exam Complete: Yes Emergency Medical Condition: Yes Differential Diagnosis Differential Diagnosis: Differential includes Crohn's disease exacerbation, bowel obstruction, perforation Lab Data Result diagrams: 12/16/17 08:45 12/16/17 08:45 Lab Results 12/16/17 12/16/17 Range/Units 08:45 08:45 CBC w Diff Auto diff final WBC 17.9 H (4.0-11.0) th/mm3 RBC 4.65 (4.00-5.30) mil/mm3 Hgb 12.9 (11.6-15.3) gm/dL Hct 38.9 (35.0-46.0) % MCV 83.7 (80.0-100.0) fL MCH 27.9 (27.0-34.0) pg MCHC 33.3 (32.0-36.0) % RDW 12.8 (11.6-17.2) % Plt Count 366 (150-450) th/mm3 MPV 7.8 (7.0-11.0) fL Neut % (Auto) 79.4 H (16.0-70.0) % Lymph % (Auto) 7.8 L (9.0-44.0) % [place] % (Auto) 5.9 (0.0-8.0) % Eos % (Auto) 5.8 H (0.0-4.0) % Baso % (Auto) 1.1 (0.0-2.0) % Neut # (Auto) 14.2 H (1.8-7.7) th/mm3 Lymph # (Auto) 1.4 (1.0-4.8) th/mm3 [place] # (Auto) 1.1 H (0.0-0.9) th/mm3 Eos # (Auto) 1.0 H (0.0-0.4) th/mm3 Baso # (Auto) 0.2 (0.0-0.2) th/mm3 WBC Differential . Differential Comment . Sodium 140 (136-145) meq/L Potassium 4.2 (3.5-5.1) meq/L Chloride 106 (98-107) meq/L Carbon Dioxide 25.8 (21.0-32.0) meq/L Anion Gap 8 (5-15) meq/L BUN 14 (7-18) mg/dL Creatinine 0.98 (0.50-1.00) mg/dL Estimated GFR 56 L (>89) mL/min Random Glucose 102 (74-106) mg/dL Calcium 8.5 (8.5-10.1) mg/dL Total Bilirubin 0.3 (0.2-1.0) mg/dL AST 21 (15-37) U/L ALT 18 (10-53) U/L Alkaline Phosphatase 96 (45-117) U/L Total Protein 7.0 (6.4-8.2) g/dL Albumin 2.9 L (3.4-5.0) g/dL Lipase 124 (73-393) U/L Imaging Data Radiologist's impression: Abdomen/Pelvis CT 12/16/17 08:38 CONCLUSION: 1. Abnormally dilated small bowel in the lower abdomen characteristic of at least a partial obstruction. Postsurgical changes of partial small bowel and large bowel resection in the right lower quadrant with abnormal residual soft tissue, spiculation and likely stricturing at this location. Multiple presumed enteroliths. No free air or significant free fluid. 2. Small hiatal hernia. Previous cholecystectomy. Mild scoliosis. Discharge Plan Discharge Disposition Patient Disposition: 30 Still Patient Discharge Condition Condition: Fair Discharge Details Diagnosis: Small bowel obstruction Physicians Team ED Provider: David Neal Primary Care Provider: Primary Care Nahomy Silva Attending Provider: Samuel Henning Discharge Interventions Interventions: Vital Signs Last Done: 12/16/17 09:33 Status ED Status: Admitted Patient
[2017-12-16 08:53] LABS: Baso # (Auto) 0.2 th/mm3 (0.0-0.2); Baso % (Auto) 1.1 % (0.0-2.0); Eos % (Auto) 5.8 % (0.0-4.0); Hematocrit 38.9 % (35.0-46.0); Hemoglobin 12.9 gm/dL (11.6-15.3); Lymph # (Auto) 1.4 th/mm3 (1.0-4.8); Lymph % (Auto) 7.8 % (9.0-44.0); Mean Corpuscular HGB Conc 33.3 % (32.0-36.0); Mean Corpuscular Hemoglobin 27.9 pg (27.0-34.0); Mean Corpuscular Volume 83.7 fL (80.0-100.0); Mean Platelet Volume 7.8 fL (7.0-11.0); Mono # (Auto) 1.1 th/mm3 (0.0-0.9); Mono % (Auto) 5.9 % (0.0-8.0); Neut # (Auto) 14.2 th/mm3 (1.8-7.7); Neut % (Auto) 79.4 % (16.0-70.0); Platelet Count 366 th/mm3 (150-450); Red Blood Count 4.65 mil/mm3 (4.00-5.30); Red Cell Distribution Width 12.8 % (11.6-17.2); White Blood Count 17.9 th/mm3 (4.0-11.0)
[2017-12-16 08:58] LABS: Chloride 106 meq/L (98-107); Potassium 4.2 meq/L (3.5-5.1); Sodium 140 meq/L (136-145)
[2017-12-16 09:01] LABS: Calcium 8.5 mg/dL (8.5-10.1)
[2017-12-16 09:02] LABS: Albumin 2.9 g/dL (3.4-5.0); Anion Gap 8 meq/L (5-15); Blood Urea Nitrogen 14 mg/dL (7-18); Carbon Dioxide 25.8 meq/L (21.0-32.0); Glucose,Random 102 mg/dL (74-106); Lipase 124 U/L (73-393)
[2017-12-16 09:05] LABS: Alanine Aminotransferase 18 U/L (10-53); Aspartate Aminotransferase 21 U/L (15-37); Glomerular Filtration Rate 56 mL/min (>89)
[2017-12-16 09:08] LABS: Alkaline Phosphatase 96 U/L (45-117)
--- NOTE | 2017-12-16 09:38 | CT ---
EXAM DATE: 12/16/2017 9:15 AM EDT AGE/SEX: 72 years / Female INDICATIONS: Lower abdominal pain. CLINICAL DATA: This is the patient's initial encounter. Patient reports that signs and symptoms have been present for 1 day and indicates a pain score of 10/10. MEDICAL/SURGICAL HISTORY: Crohn's disease. Colon resection. RADIATION DOSE: 5.54 CTDI (mGy) COMPARISON: [facility], CT ABDOMEN & PELVIS W/O CONTRAST, 08/22/2016. . TECHNIQUE: Multiple contiguous axial images were obtained through the abdomen. Images were obtained using multiple row detector helical technique. Using automated exposure control and adjustment of the mA and/or kV according to patient size, radiation dose was kept as low as reasonably achievable to o btain optimal diagnostic quality images. DICOM format image data is available electronically for rev iew and comparison. FINDINGS: Comparison is August 22, 2016. Again seen are abnormally dilated loops of small bowel in the lower abdom en measuring up to around 5 cm in diameter characteristic of at least a partial small bowel obstructi on. There are postoperative changes involving small and large bowel in the right lower quadrant with surgical clips present and numerous calcified masses that appear to be within bowel, possibly enterol iths. These are similar in appearance to the prior examination in August. There is some irregular spicu lation in the right lower quadrant similar to prior exam with likely bowel stricture at this location . No acute findings in the lower abdomen. Small hepatic cyst. Spleen, adrenals, kidneys and pancreas de monstrate no acute findings. Previous cholecystectomy. CONCLUSION: 1. Abnormally dilated small bowel in the lower abdomen characteristic of at least a partial obstruct ion. Postsurgical changes of partial small bowel and large bowel resection in the right lower quadran t with abnormal residual soft tissue, spiculation and likely stricturing at this location. Multiple p resumed enteroliths. No free air or significant free fluid. 2. Small hiatal hernia. Previous cholecystectomy. Mild scoliosis. Electronically signed by: Ran Marcos MD 12/16/2017 9:36 AM EDT
--- NOTE | 2017-12-16 10:26 | P.HPIM ---
History of Present Illness Primary Care Physician: No Primary Care Physician Chief Complaint: abdominal pain History of Present Illness: patient is a 72 y/o female with history of Crohn's disease who presented to ER with abdominal pain. she says that the pain was in lower abdomen and started this morning. pain was severe in intensity and was associated with nausea. she denies any fever,chills, emesis. she had a small bowel movement this morning. Inpatient Certification: I certify that the inpatient services were ordered in accordance with Medicare regulations governing the order. This includes certification that hospital inpatient services are reasonable and necessary and in the case of services not specified as inpatient-only under 42 CFR 419.22(n), that they are appropriately provided as inpatient services in accordance to with the 2-midnight benchmark under 43 CFR 412.3(e) Estimated Total Length of Stay (Days): 2 Plans for Post Hospital Care: Home Review of Systems All other systems reviewed negative except as stated in HPI PMFSH - History History Provided By: Patient - Medical History Medical History: Medical History (Last Reviewed 12/16/17 @ 10:23 by Samuel Henning MD) Crohns disease Eczema - Surgical History Surgical History: Surgical History (Last Reviewed 12/16/17 @ 10:23 by Samuel Henning MD) History of bowel resection History of cholecystectomy - Family History Family History: Family History (Last Updated 12/16/17 @ 10:23 by Samuel Henning MD) Other No pertinent family history - Tobacco History Second Hand Smoke Exposure: Yes Smoking Status: Former smoker - Alcohol History How Often Do You Have a Drink Containing Alcohol: Never - Substance Use History Substance History: No History of Abuse - Travel History Recent Travel in the [place] Within the Last 8 Weeks: No Recent Travel Out of the Country Within the Last 8 Weeks: No - Immunization History Tetanus Immunization: Unsure Medications and Allergies Active Medications: Active Medications Sodium Chloride (Ns Inj) 1,000 mls @ 200 mls/hr IV.CONT .Q5H MARTIN Stop: 12/16/17 13:44 Last Admin: 12/16/17 09:00 Dose: 200 mls/hr Sodium Chloride (Ns Inj) 1,000 mls @ 100 mls/hr IV.CONT .Q10H MARTIN Ciprofloxacin/Dextrose (Cipro 400 Mg/200 Ml Inj) 400 mg in 200 mls @ 200 mls/ hr IV.SIG Q12H MARTIN Metronidazole/Sodium Chloride (Flagyl 500 Mg Inj) 100 mls @ 100 mls/hr IV.SIG Q8H MARTIN Morphine Sulfate (Morphine Inj) 4 mg IV.PUSH Q4H PRN PRN Reason: pain Ondansetron HCl (Zofran Inj) 4 mg IV.PUSH Q8H PRN PRN Reason: nausea Sodium Chloride (Ns Flush) 2 ml IV.FLUSH PRN PRN PRN Reason: FLUSH AFTER USING IV ACCESS Allergies Allergy/AdvReac Type Severity Reaction Status Date / Time diatrizoate meglumine Allergy Severe Hives Verified 12/16/17 08:28 gadobenic acid Allergy Severe Hives Verified 12/16/17 08:28 gadodiamide Allergy Severe Hives Verified 12/16/17 08:28 gadoteridol Allergy Severe Hives Verified 12/16/17 08:28 iodine Allergy Severe Hives Verified 12/16/17 08:28 iodixanol Allergy Severe Hives Verified 12/16/17 08:28 iohexol Allergy Severe Hives Verified 12/16/17 08:28 potassium iodide Allergy Severe Hives Verified 12/16/17 08:28 povidone-iodine Allergy Severe Hives Verified 12/16/17 08:28 sodium iodide Allergy Severe Hives Verified 12/16/17 08:28 sodium iodide Allergy Severe Hives Verified 12/16/17 08:28 Sulfa (Sulfonamide AdvReac Intermediate Nausea/Vomi Verified 12/16/17 08:28 Antibiotics) ting Home Medications Medication Instructions Recorded Confirmed Type folic acid 1 mg PO DAILY 12/16/17 12/16/17 History sulfasalazine [Azulfidine] 1 g PO DAILY 12/16/17 12/16/17 History tramadol 50 mg PO Q4-6H PRN 12/16/17 12/16/17 History ustekinumab [Stelara] 90 mg SUBCUT Q8W 12/16/17 12/16/17 History Exam Vital signs: Vital Signs 12/16/17 08:16 12/16/17 08:28 12/16/17 09:33 Temperature 97.6 F Pulse Rate 78 73 66 Respiratory Rate 18 16 14 Blood Pressure 122/58 L 97/63 L 89/47 L Pulse Oximetry 97 97 99 Intake & Output 1012/16/17 12/16/17 18:59 06:59 18:59 Weight 52.5 kg Other: Date of Last Bowel Movement 12/16/17 - Constitutional no acute distress - Routine HEENT Exam Eye: Present: PERRL - Routine Neck Exam Present: supple - Routine Respiratory Exam Present: CTA bilaterally - Routine Cardiovascular Exam Present: RRR - Routine Abdominal Exam Present: soft, tenderness (periumbilcal tenderness) - Routine Extremities Exam Comments: no pedal edema. - Routine Neurological Exam Present: alert, oriented X3 Results - Labs CBC & Chem 7: 12/16/17 08:45 12/16/17 08:45 Labs: Short CBC 12/16/17 Range/Units 08:45 WBC 17.9 H (4.0-11.0) th/mm3 Hgb 12.9 (11.6-15.3) gm/dL Hct 38.9 (35.0-46.0) % Plt Count 366 (150-450) th/mm3 BMP 12/16/17 08:45 Sodium 140 Potassium 4.2 Chloride 106 Carbon Dioxide 25.8 BUN 14 Creatinine 0.98 Calcium 8.5 Liver Function 12/16/17 Range/Units 08:45 Total Bilirubin 0.3 (0.2-1.0) mg/dL AST 21 (15-37) U/L ALT 18 (10-53) U/L Alkaline Phosphatase 96 (45-117) U/L Albumin 2.9 L (3.4-5.0) g/dL - Imaging Impressions Abdomen/Pelvis CT 12/16/17 08:38 CONCLUSION: 1. Abnormally dilated small bowel in the lower abdomen characteristic of at least a partial obstruction. Postsurgical changes of partial small bowel and large bowel resection in the right lower quadrant with abnormal residual soft tissue, spiculation and likely stricturing at this location. Multiple presumed enteroliths. No free air or significant free fluid. 2. Small hiatal hernia. Previous cholecystectomy. Mild scoliosis. Caprini VTE Risk Assessment Caprini VTE Risk Assessment: Moderate/High Risk (score >= 2) Caprini Risk Assessment Model: Point Value = 1 Point Value = 2 Point Value = 3 Point Value = 5 Age 41-60 Minor surgery BMI > 25 kg/m2 Swollen legs Varicose veins or History of unexplained or recurrent spontaneous Oral contraceptives or hormone replacement Sepsis (< 1 month) Serious lung disease, including pneumonia (< 1 month) Abnormal pulmonary function Acute myocardial infarction Congestive heart failure (< 1 month) History of inflammatory bowel disease Medical patient at bed rest Age 61-74 Arthroscopic surgery Major open surgery (> 45 min) Laparoscopic surgery (> 45 min) Malignancy Confined to bed (> 72 hours) Immobilizing plaster cast Central venous access Age >= 75 History of VTE Family history of VTE Factor V Leiden Prothrombin [id number] Lupus anticoagulant Anticardiolipin antibodies Elevated serum homocysteine Heparin-induced thrombocytopenia Other congenital or acquired thrombophilia Stroke (< 1 month) Elective arthroplasty Hip, pelvis, or leg fracture Acute spinal cord injury (< 1 month) Prophylaxis Regimen: Total Risk Factor Score Risk Level Prophylaxis Regimen 0-1 Low Early ambulation 2 Moderate Order ONE of the following: *Sequential Compression Device (SCD) *Heparin 5000 units SQ BID 3-4 Higher Order ONE of the following medications: *Heparin 5000 units SQ TID *Enoxaparin/Lovenox 40 mg SQ daily (WT < 150 kg, CrCl > 30 mL/min) *Enoxaparin/Lovenox 30 mg SQ daily (WT < 150 kg, CrCl > 10-29 mL/min) *Enoxaparin/Lovenox 30 mg SQ BID (WT < 150 kg, CrCl > 30 mL/min) AND/OR *Sequential Compression Device (SCD) 5 or more Highest Order ONE of the following medications: *Heparin 5000 units SQ TID (Preferred with Epidurals) *Enoxaparin/Lovenox 40 mg SQ daily (WT < 150 kg, CrCl > 30 mL/min) *Enoxaparin/Lovenox 30 mg SQ daily (WT < 150 kg, CrCl > 10-29 mL/min) *Enoxaparin/Lovenox 30 mg SQ BID (WT < 150 kg, CrCl > 30 mL/min) AND *Sequential Compression Device (SCD) Assessment and Plan - Plan A/P - partial bowel obstruction with history of Crohn's disease keep NPO- start on Cipro and Flagyl- continue supportive care with IV fluid, pain control and antiemetics as needed. consult GI and general surgery. -DVT prophylaxis with SCD's- pending surgery evaluation. Discussed Condition With: ER physician, the patient and her . Discharge Planning: home- pending clinical course and w/u.
[2017-12-16] MEDS: Morphine Inj 4 MG/ML Vial IV.PUSH PRN ×3 (11:25→19:31)
[2017-12-16] MEDS: Ciprofloxacin 400 MG/200 ML 400 MG/200 ML PIGGYBACK IV.SIG SCH (11:27)
[2017-12-16] MEDS: Sod Chloride 0.9% Inj 1,000 ML IV.CONT SCH (15:23)
--- NOTE | 2017-12-16 16:02 | MB ---
cc: Yamilet Winchester MD DATE: 12/16/2017 SERVICE: Gastroenterology. ATTENDING PHYSICIAN: Dr. Yamilet Winchester. PRIMARY FI[employer] HARVEST CONTRACTOR: Dr. Richmond Meredith. REASON FOR CONSULTATION: Small-bowel obstruction, history of Crohn disease. HISTORY OF PRESENT ILLNESS: This is a very pleasant 72-year-old lady who has longstanding history of Crohn disease, primarily in the small bowel, which has been reasonably controlled. She has had at least 2 bowel resections in the past. In the past, she has been on Remicade which helps control her GI related symptoms. She was noted to have some extraintestinal manifestations including rash and possibly erythema nodosum in the leg, which was biopsied. Due to these findings her drug therapy was changed to vedolizumab. On this treatment, she had good resolution of her Crohn's disease, but again she also had significant extraintestinal manifestations. Since then she was changed to Stelara 90 mg every 8 weeks. She came into the hospital this time; woke up in the morning complaining of pain in the mid abdomen, radiating to the right lower quadrant and flank. This is a similar pain that she has had in the past at times of her bowel obstructions. She normally goes on a liquid diet and waits it out, but today due to the severity of the pain, she decided to come into the hospital. She had some associated nausea, but no vomiting. She has not had any diarrhea or any sick contacts. She did have a small soft bowel movement earlier this morning. PAST MEDICAL HISTORY: Crohn's disease, eczema. PAST SURGICAL HISTORY: Cholecystectomy, history of bowel resection x2. ALLERGIES: THERE ARE MULTIPLE DRUG ALLERGIES WHICH ARE LISTED IN THE MAR. HOME MEDICATIONS: Include: 1. Folic acid. 2. Azulfidine. 3. Tramadol. 4. Stelara. FAMILY HISTORY: No GI malignancies. SOCIAL HISTORY: Denies any current tobacco use with a history of smoking in the past. No alcohol use. No illicit drug use. REVIEW OF SYSTEMS: A 12-point review of system was obtained by me; shown to be negative or noncontributory except for the above-mentioned HPI. PHYSICAL EXAMINATION: VITAL SIGNS: 97.3, 93 heart rate, blood pressure 92/50, O2 saturation ____ on room air. GENERAL: Alert, oriented. No acute distress. HEENT: Head atraumatic. Pupils equal, round, reactive to light. Oral mucosa is moist and pink. NECK: Supple. No carotid bruits. No cervical lymphadenopathy. CARDIOVASCULAR: Regular rate and rhythm. LUNGS: No wheeze heard. ABDOMEN: Soft, mildly tender to palpation in the right quadrant just to the right of her scar. Bowel sounds are hypoactive, but present. No rebound appreciated. No periumbilical or flank ecchymosis. Difficult to palpate the liver due to abdominal pain. GENITOURINARY: No CVA tenderness. EXTREMITIES: No peripheral edema noted. Equal strength in the lower extremity and pulses. NEUROLOGIC: Alert and oriented. No focal deficits. PSYCHIATRIC: Cooperative, appropriate mood and affect. LABORATORY VALUES: WBC 17.9, hemoglobin 12.9, platelet count of 366. Sodium 140, potassium 4.2, chloride ____, bicarbonate 25, BUN 14, creatinine 0.98, AST 12, ALT 18, alkaline phosphatase 96, albumin 2.9, lipase 124. IMAGING: Abnormally dilated small bowel loops in the lower abdomen characteristic of a partial small-bowel obstruction, postsurgical changes and a partial small bowel and large bowel resection right lower quadrant, suspicion for a possible stricture at this area. IMPRESSION: 1. Partial small-bowel obstruction, may be secondary to a fibrotic stricture versus a Crohn's exacerbation, which I believe is less likely given her symptomatology, as well as possibility of adhesive bowel disease given her multiple surgical interventions in the past. She currently appears stable and is not having any profuse nausea, vomiting or overt obstructive symptoms. 2. Crohn's disease. 3. Leukocytosis. 4. Abdominal pain. 5. Diffuse eczema, which may be medication related. RECOMMENDATIONS: 1. Agree with n.p.o. for now and then slowly advance diet to clear liquids depending on her symptoms. 2. Agree with Cipro and Flagyl including Cipro 400 mg IV b.i.d. and Flagyl 500 mg IV t.i.d. 3. Monitor CBC, CMP and replace electrolytes. Would also add a CRP level and a sedimentation rate to evaluate. If significantly elevated, this may help to indicate that there may be a Crohn's related stricture with inflammation rather than a chronic fibrotic surgical stricture. 4. If evidence of profuse diarrhea, then we could order some stool studies which may include a fecal calprotectin to evaluate disease activity in the GI tract. At this time, my hope is that conservative management with n.p.o. and IV fluids and antibiotics may get her through this partial bowel obstructive episode. Thank you for allowing [facility] to participate in the care of the patient. We will follow along with you and make recommendation as per the patient's clinical course. Please do not hesitate to contact me for any further issues. MD [place] Smiley/evy/jennifer , 03:25 PM , 03:39 PM
--- NOTE | 2017-12-16 18:41 | P.CONGS ---
HPI Gen Surgery Consult Note Consult date: 12/16/17 Reason for consult: abdominal pain (Crohn's disease) Requesting physician: Samuel Henning Narrative: Patient has long-standing history of Crohn's disease recently was changed her medication and developed some abdominal discomfort over the last few days came to the emergency room. She had abdominal pain mild nausea no vomiting Since coming into the emergency room and being admitted to the hospital she has had a bowel movement and feels much better PMFSH - History History Provided By: Patient - Medical History Medical History: Medical History (Last Reviewed 12/16/17 @ 18:37 by Carlo Yanes MD) Crohns disease Eczema - Surgical History Surgical History: Surgical History (Last Reviewed 12/16/17 @ 18:37 by Carlo Yanes MD) History of bowel resection History of cholecystectomy - Family History Family History: Family History (Last Reviewed 12/16/17 @ 18:37 by Carlo Yanes MD) Other No pertinent family history - Social History I have reviewed the patient's Social History: Yes - Tobacco History Second Hand Smoke Exposure: No Tobacco Use In Past 30 Days: No Smoking Status: Former smoker Tobacco Type: Cigarettes - Alcohol History How Often Do You Have a Drink Containing Alcohol: Monthly or less - Substance Use History Substance History: No History of Abuse - Travel History Recent Travel in the [place] Within the Last 8 Weeks: No Recent Travel Out of the Country Within the Last 8 Weeks: No - Immunization History Tetanus Immunization: Unsure Hx Influenza Vaccine This Season: No Medications and Allergies Active Medications: Active Medications Sodium Chloride (Ns Inj) 1,000 mls @ 100 mls/hr IV.CONT .Q10H [facility] Last Admin: 12/16/17 15:23 Dose: 100 mls/hr Ciprofloxacin/Dextrose (Cipro 400 Mg/200 Ml Inj) 400 mg in 200 mls @ 200 mls/ hr IV.SIG Q12H [facility] Last Infusion: 12/16/17 12:27 Dose: Infused Metronidazole/Sodium Chloride (Flagyl 500 Mg Inj) 100 mls @ 100 mls/hr IV.SIG Q8H [facility] Last Infusion: 12/16/17 16:27 Dose: Infused Morphine Sulfate (Morphine Inj) 4 mg IV.PUSH Q4H PRN PRN Reason: PAIN SCALE 1 TO 10 Last Admin: 12/16/17 15:31 Dose: 4 mg Ondansetron HCl (Zofran Inj) 4 mg IV.PUSH Q8H PRN PRN Reason: nausea Sodium Chloride (Ns Flush) 2 ml IV.FLUSH PRN PRN PRN Reason: FLUSH AFTER USING IV ACCESS Last Admin: 12/16/17 15:31 Dose: 2 ml Allergies Allergy/AdvReac Type Severity Reaction Status Date / Time diatrizoate meglumine Allergy Severe Hives Verified 12/16/17 08:28 gadobenic acid Allergy Severe Hives Verified 12/16/17 08:28 gadodiamide Allergy Severe Hives Verified 12/16/17 08:28 gadoteridol Allergy Severe Hives Verified 12/16/17 08:28 iodine Allergy Severe Hives Verified 12/16/17 08:28 iodixanol Allergy Severe Hives Verified 12/16/17 08:28 iohexol Allergy Severe Hives Verified 12/16/17 08:28 potassium iodide Allergy Severe Hives Verified 12/16/17 08:28 povidone-iodine Allergy Severe Hives Verified 12/16/17 08:28 sodium iodide Allergy Severe Hives Verified 12/16/17 08:28 sodium iodide Allergy Severe Hives Verified 12/16/17 08:28 Sulfa (Sulfonamide AdvReac Intermediate Nausea/Vomi Verified 12/16/17 08:28 Antibiotics) ting Home Medications Medication Instructions Recorded Confirmed Type folic acid 1 mg PO DAILY 12/16/17 12/16/17 History sulfasalazine [Azulfidine] 1 g PO DAILY 12/16/17 12/16/17 History tramadol 50 mg PO Q4-6H PRN 12/16/17 12/16/17 History ustekinumab [Stelara] 90 mg SUBCUT Q8W 12/16/17 12/16/17 History Exam Vital signs: Vital Signs 12/16/17 08:16 12/16/17 08:28 12/16/17 09:33 Temperature 97.6 F Pulse Rate 78 73 66 Respiratory Rate 18 16 14 Blood Pressure 122/58 L 97/63 L 89/47 L Pulse Oximetry 97 97 99 12/16/17 11:27 12/16/17 12:00 12/16/17 13:03 Temperature 97.3 F L Pulse Rate 93 H Respiratory Rate 18 18 Blood Pressure 89/52 L 92/50 L Pulse Oximetry 93 L 12/16/17 15:33 12/16/17 16:00 Temperature 97.5 F L Pulse Rate 67 Respiratory Rate 18 18 Blood Pressure 86/49 L Pulse Oximetry 94 L Intake & Output 12/15/17 12/16/17 12/16/17 18:59 06:59 18:59 Intake Total 1700 / 1700 Balance 1700 / 1700 Weight 52.1 kg Intake: IV 1700 / 1700 NS Inj 1,000 ML @ 200 mls/hr IV 1400 / 1400 .CONT .Q5H [facility] Rx#:[id number] Cipro 400 MG/200 ML Inj 400 mg 200 / 200 In 200 ml @ 200 mls/hr IV.SIG Q12H [facility] Rx#:[id number] Flagyl 500 MG Inj 100 ML @ 100 100 / 100 mls/hr IV.SIG Q8H [facility] Rx#: [id number] Other: Date of Last Bowel Movement 12/16/17 Weight On Admission 52.5 kg Narrative: Alert oriented person place and time Appears comfortable Neck is supple full range of motion No JVD Chest clear Abdomen thin soft surgical scar from previous surgery mild soreness right lower quadrant no rebound or guarding Extremities moves all extremities well no clubbing cyanosis or edema Back with a rash Results - Labs 12/16/17 08:45 12/16/17 08:45 Laboratory Results - last 24 hr 12/16/17 12/16/17 12/16/17 08:45 08:45 14:40 CBC w Diff Auto diff final WBC 17.9 H RBC 4.65 Hgb 12.9 Hct 38.9 MCV 83.7 MCH 27.9 MCHC 33.3 RDW 12.8 Plt Count 366 MPV 7.8 Neut % (Auto) 79.4 H Lymph % (Auto) 7.8 L [place] % (Auto) 5.9 Eos % (Auto) 5.8 H Baso % (Auto) 1.1 Neut # (Auto) 14.2 H Lymph # (Auto) 1.4 [place] # (Auto) 1.1 H Eos # (Auto) 1.0 H Baso # (Auto) 0.2 WBC Differential . Differential Comment . Sodium 140 Potassium 4.2 Chloride 106 Carbon Dioxide 25.8 Anion Gap 8 BUN 14 Creatinine 0.98 Estimated GFR 56 L Random Glucose 102 Lactic Acid 0.5 Calcium 8.5 Total Bilirubin 0.3 AST 21 ALT 18 Alkaline Phosphatase 96 Total Protein 7.0 Albumin 2.9 L Lipase 124 - Imaging Imaging: ITS Impressions Abdomen/Pelvis CT 12/16/17 08:38 CONCLUSION: 1. Abnormally dilated small bowel in the lower abdomen characteristic of at least a partial obstruction. Postsurgical changes of partial small bowel and large bowel resection in the right lower quadrant with abnormal residual soft tissue, spiculation and likely stricturing at this location. Multiple presumed enteroliths. No free air or significant free fluid. 2. Small hiatal hernia. Previous cholecystectomy. Mild scoliosis. CT scan - abdomen: report reviewed, image reviewed CT scan - pelvis: report reviewed, image reviewed Assessment and Plan - Assessment (1) Crohns disease Code(s): K50.90 - Crohn's disease, unspecified, without complications Status: Chronic (2) Abdominal discomfort in right lower quadrant Code(s): R10.31 - Right lower quadrant pain Status: Acute (3) History of resection of small bowel Code(s): Z90.49 - Acquired absence of other specified parts of digestive tract Status: Chronic (4) Elevated white blood cell count Code(s): D72.829 - Elevated white blood cell count, unspecified Status: Acute (5) Abnormal abdominal CT scan Code(s): R93.5 - Abnormal findings on diagnostic imaging of other abdominal regions, including retroperitoneum Status: Acute - Plan 72-year-old female long-standing Crohn's disease has had 2 operations in the past recently changed her medical therapy for her Crohn's disease with exacerbation of symptomatology which is somewhat resolved since her admission to the hospital with IV fluids and n.p.o. At this time no indication of any surgical intervention She has had a bowel movement since having the CT scan Agree with maximal medical therapy to treat her Crohn's disease to avoid any operative intervention This was discussed with the patient she appeared to understand - Attending Attestation NOTE FOR SURGICAL ATTENDING, DR. CARLO YANES I attest that I had a [id number] encounter with the patient on the same day, and personally performed and documented my assessment and findings in the medical record. The following services were provided during this hospital visit: Chart data review, vital sign assessments/reviewing monitor data Review of consultations notes if present. Medication orders/review and/or management Ordering and/or reviewing lab tests Ordering and/or interpreting/reviewing x-rays and/or diagnostic studies Care of the patient and discussion of the patient with the care team Documentation time To help prompt me to consider important information that might be impacting today's encounter and assessment, Information from prior notes written by myself or my colleagues may have been "brought forward/copy and pasted" into today's note.
[2017-12-16 20:00] LABS: Bilirubin,Urine Negative (Negative); Clarity,Urine Clear (Clear); Color,Urine Yellow (Yellw/Straw); Glucose,Urine (UA) Negative (Negative); Leukocyte Esterase,Urine Trace (Negative); Nitrite,Urine Negative (Negative); Specific Gravity,Urine Greater/Equal 1.030 (1.002-1.035); Urobilinogen,Urine 0.2 mg/dL (Less than 2)
[2017-12-16 20:05] LABS: Amorphous Sediment,Urine Few /hpf; Bacteria,Urine Few /hpf; Hyaline Casts,Urine 0-3 /lpf (0-3); Mucus,Urine Few /lpf (Occasional); RBC,Urine 0-3 /hpf (0-3); Squamous Epithelial Cell,Urine 0-5 /hpf (0-5)
[2017-12-17] MEDS: Ciprofloxacin 400 MG/200 ML 400 MG/200 ML PIGGYBACK IV.SIG SCH ×3 (00:27→23:48)
[2017-12-17] MEDS: Sod Chloride 0.9% Inj 1,000 ML IV.CONT SCH ×3 (00:30→18:37)
--- NOTE | 2017-12-17 09:08 | P.PNIM ---
Subjective Interval history: f/u; bowel obstruction in no acute distress. looks much more comfortable today. abdominal pain has much improved. had a BM last night. no fever. complaining of generalized itching. Physical Exam Vital signs: Vital Signs 12/16/17 09:33 12/16/17 11:27 12/16/17 12:00 Temperature 97.3 F L Pulse Rate 66 93 H Respiratory Rate 14 18 18 Blood Pressure 89/47 L 89/52 L Pulse Oximetry 99 93 L 12/16/17 13:03 12/16/17 15:33 12/16/17 16:00 Temperature 97.5 F L Pulse Rate 67 Respiratory Rate 18 18 Blood Pressure 92/50 L 86/49 L Pulse Oximetry 94 L 12/16/17 20:00 12/16/17 23:59 12/17/17 06:31 Temperature 97.4 F L 97.9 F Pulse Rate 66 70 Respiratory Rate 20 20 18 Blood Pressure 99/54 L 112/52 L Pulse Oximetry 94 L 95 Intake & Output 12/16/17 12/17/17 12/17/17 18:59 06:59 18:59 Intake Total 1700 / 1700 1400 / 1400 Balance 1700 / 1700 1400 / 1400 Weight 52.1 kg 52.5 kg Intake: IV 1700 / 1700 1400 / 1400 NS Inj 1,000 ML @ 100 mls/hr IV 1400 / 1400 1000 / 1000 .CONT .Q10H [facility] Rx#:[id number] Cipro 400 MG/200 ML Inj 400 mg 200 / 200 200 / 200 In 200 ml @ 200 mls/hr IV.SIG Q12H [facility] Rx#:[id number] Flagyl 500 MG Inj 100 ML @ 100 100 / 100 200 / 200 mls/hr IV.SIG Q8H [facility] Rx#: [id number] Oral 0 / 0 Other: # Voids 3 Date of Last Bowel Movement 12/16/17 12/17/17 Weight On Admission 52.5 kg - Constitutional no acute distress - Routine Respiratory Exam Present: CTA bilaterally - Routine Cardiovascular Exam Present: RRR - Routine Abdominal Exam Present: soft - Routine Extremities Exam Comments: no pedal edema. - Routine Neurological Exam Present: alert, oriented X3 Results - Labs CBC & Chem 7: 12/16/17 08:45 12/16/17 08:45 Laboratory Results - last 24 hr 12/16/17 12/16/17 12/16/17 08:45 14:40 19:30 Creatinine 0.98 Estimated GFR 56 L Lactic Acid 0.5 Total Bilirubin 0.3 AST 21 ALT 18 Alkaline Phosphatase 96 Total Protein 7.0 Urine Color Yellow Urine Clarity Clear Urine pH 5.0 Ur Specific [place] Greater/equal 1.030 Urine Protein Trace Urine Glucose (UA) Negative Urine Ketones Negative Urine Occult Blood Negative Urine Nitrate Negative Urine Bilirubin Negative Urine Urobilinogen 0.2 Ur Leukocyte Esterase Trace H Urine RBC 0-3 Urine WBC 9-20 H Ur Squamous Epith Cells 0-5 Amorphous Sediment Few H Urine Bacteria Few H Hyaline Casts 0-3 Urine Mucus Few H Micro UA Comment Culture indicated Ur Microscopic Review Microscopic reviewed Urine Culture Comments Culture indicated - Imaging Impressions Abdomen/Pelvis CT 12/16/17 08:38 CONCLUSION: 1. Abnormally dilated small bowel in the lower abdomen characteristic of at least a partial obstruction. Postsurgical changes of partial small bowel and large bowel resection in the right lower quadrant with abnormal residual soft tissue, spiculation and likely stricturing at this location. Multiple presumed enteroliths. No free air or significant free fluid. 2. Small hiatal hernia. Previous cholecystectomy. Mild scoliosis. Assessment and Plan - Plan A/P - partial bowel obstruction with history of Crohn's disease diet per surgery- started on Cipro and Flagyl- continue supportive care with IV fluid, pain control and antiemetics as needed. GI consult appreciated. -DVT prophylaxis with SCD's- pending surgery f/u. Discharge Planning: home- pending clinical course and surgery f/u and recommendations.
[2017-12-17 09:54] LABS: Baso % (Auto) 0.5 % (0.0-2.0); Eos # (Auto) 0.6 th/mm3 (0.0-0.4); Eos % (Auto) 6.5 % (0.0-4.0); Hematocrit 33.9 % (35.0-46.0); Lymph # (Auto) 1.4 th/mm3 (1.0-4.8); Lymph % (Auto) 15.3 % (9.0-44.0); Mean Corpuscular HGB Conc 32.2 % (32.0-36.0); Mean Corpuscular Hemoglobin 27.3 pg (27.0-34.0); Mean Corpuscular Volume 84.8 fL (80.0-100.0); Mean Platelet Volume 7.2 fL (7.0-11.0); Mono # (Auto) 0.6 th/mm3 (0.0-0.9); Neut # (Auto) 6.8 th/mm3 (1.8-7.7); Neut % (Auto) 71.7 % (16.0-70.0); Platelet Count 321 th/mm3 (150-450); White Blood Count 9.4 th/mm3 (4.0-11.0)
[2017-12-17 09:56] LABS: Hemoglobin 10.9 gm/dL (11.6-15.3)
[2017-12-17 10:33] LABS: Calcium 7.6 mg/dL (8.5-10.1); Carbon Dioxide 24.4 meq/L (21.0-32.0)
[2017-12-17] MEDS: Morphine Inj 4 MG/ML Vial IV.PUSH PRN (22:31)
--- NOTE | 2017-12-18 00:16 | P.PNGS ---
Subjective Patient reports: feels better, pain is less, flatus, bowel movement Physical Exam Vital signs: Vital Signs 12/17/17 06:31 12/17/17 08:00 12/17/17 12:00 Temperature 98.1 F 98.7 F Pulse Rate 71 77 Respiratory Rate 18 18 18 Blood Pressure 104/52 L 113/59 L Pulse Oximetry 95 95 12/17/17 16:00 12/17/17 20:00 12/18/17 00:00 Temperature 97.1 F L 97.2 F L 97.9 F Pulse Rate 80 76 69 Respiratory Rate 18 20 20 Blood Pressure 129/78 119/73 99/50 L Pulse Oximetry 96 94 L 93 L Intake & Output 12/17/17 12/17/17 12/18/17 06:59 18:59 06:59 Intake Total 1400 / 1400 1000 / 1000 100 / 100 Balance 1400 / 1400 1000 / 1000 100 / 100 Weight 52.5 kg Intake: IV 1400 / 1400 1000 / 1000 100 / 100 NS Inj 1,000 ML @ 100 mls/hr IV 1000 / 1000 1000 / 1000 .CONT .Q10H [facility] Rx#:[id number] Cipro 400 MG/200 ML Inj 400 mg 200 / 200 In 200 ml @ 200 mls/hr IV.SIG Q12H [facility] Rx#:[id number] Flagyl 500 MG Inj 100 ML @ 100 200 / 200 100 / 100 mls/hr IV.SIG Q8H [facility] Rx#: [id number] Oral 0 / 0 Other: # Voids 3 4 Date of Last Bowel Movement 12/17/17 12/17/17 # Bowel Movements 0 - Routine Abdominal Exam Present: soft Results - Labs 12/17/17 09:45 12/17/17 09:45 Laboratory Results - last 24 hr 12/17/17 12/17/17 09:45 09:45 CBC w Diff Auto diff final WBC 9.4 RBC 4.00 Hgb 10.9 L D Hct 33.9 L MCV 84.8 MCH 27.3 MCHC 32.2 RDW 13.0 Plt Count 321 MPV 7.2 Neut % (Auto) 71.7 H Lymph % (Auto) 15.3 [place] % (Auto) 6.0 Eos % (Auto) 6.5 H Baso % (Auto) 0.5 Neut # (Auto) 6.8 Lymph # (Auto) 1.4 [place] # (Auto) 0.6 Eos # (Auto) 0.6 H Baso # (Auto) 0.0 WBC Differential . Differential Comment . Sodium 143 Potassium 4.0 Chloride 111 H Carbon Dioxide 24.4 Anion Gap 8 BUN 13 Creatinine 0.79 Estimated GFR 72 L Random Glucose 79 Calcium 7.6 L D - Imaging Imaging: ITS Impressions Abdomen/Pelvis CT 12/16/17 08:38 CONCLUSION: 1. Abnormally dilated small bowel in the lower abdomen characteristic of at least a partial obstruction. Postsurgical changes of partial small bowel and large bowel resection in the right lower quadrant with abnormal residual soft tissue, spiculation and likely stricturing at this location. Multiple presumed enteroliths. No free air or significant free fluid. 2. Small hiatal hernia. Previous cholecystectomy. Mild scoliosis. 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
[2017-12-18] MEDS: Sod Chloride 0.9% Inj 1,000 ML IV.CONT SCH (02:54)
[2017-12-18 09:22] VITALS: BP 114/54; PULSE 95; RESP 18; TEMP 97.7; O2SAT 95
--- NOTE | 2017-12-18 09:47 | P.PNIM ---
Subjective Interval history: Patient seen and examined this morning. Afebrile vital signs stable. No acute events overnight. Patient reports that she is been having bowel movements, has been eating okay, is not having any more abdominal pain. She wishes to get out of the hospital today as it is [birth year][age] [birth year]. I informed her that I feel it appropriate at this time that she be discharged home and she is very happy with this news. Physical Exam Vital signs: Vital Signs 12/17/17 12:00 12/17/17 16:00 12/17/17 20:00 Temperature 98.7 F 97.1 F L 97.2 F L Pulse Rate 77 80 76 Respiratory Rate 18 18 20 Blood Pressure 113/59 L 129/78 119/73 Pulse Oximetry 95 96 94 L 12/18/17 00:00 12/18/17 08:00 Temperature 97.9 F 97.7 F Pulse Rate 69 95 H Respiratory Rate 20 18 Blood Pressure 99/50 L 114/54 L Pulse Oximetry 93 L 95 Intake & Output 12/17/17 12/18/17 12/18/17 18:59 06:59 18:59 Intake Total 1000 / 1000 1400 / 1400 Balance 1000 / 1000 1400 / 1400 Weight 52.3 kg Intake: IV 1000 / 1000 1400 / 1400 NS Inj 1,000 ML @ 100 mls/hr IV 1000 / 1000 1000 / 1000 .CONT .Q10H [facility] Rx#:[id number] Cipro 400 MG/200 ML Inj 400 mg 200 / 200 In 200 ml @ 200 mls/hr IV.SIG Q12H [facility] Rx#:[id number] Flagyl 500 MG Inj 100 ML @ 100 200 / 200 mls/hr IV.SIG Q8H [facility] Rx#: [id number] Oral 0 / 0 Other: # Voids 4 3 Date of Last Bowel Movement 12/17/17 12/17/17 # Bowel Movements 0 1 Narrative: GEN: Well-developed, well-nourished patient. No acute distress. CV: Regular rate and rhythm without obvious murmurs LUNGS: Clear to auscultation bilaterally. Normal respiratory effort. No wheezes , rales, rhonchi. GI: Soft, nontender, nondistended. No palpable masses. Bowel sounds WNL. EXT: No edema. NEURO/PSYCH: Afocal. Awake, alert, and oriented x3. Appropriate insight and judgment. Results - Labs CBC & Chem 7: 12/17/17 09:45 12/17/17 09:45 Laboratory Results - last 24 hr 12/17/17 12/17/17 09:45 09:45 CBC w Diff Auto diff final WBC 9.4 RBC 4.00 Hgb 10.9 L D Hct 33.9 L MCV 84.8 MCH 27.3 MCHC 32.2 RDW 13.0 Plt Count 321 MPV 7.2 Neut % (Auto) 71.7 H Lymph % (Auto) 15.3 [place] % (Auto) 6.0 Eos % (Auto) 6.5 H Baso % (Auto) 0.5 Neut # (Auto) 6.8 Lymph # (Auto) 1.4 [place] # (Auto) 0.6 Eos # (Auto) 0.6 H Baso # (Auto) 0.0 WBC Differential . Differential Comment . Sodium 143 Potassium 4.0 Chloride 111 H Carbon Dioxide 24.4 Anion Gap 8 BUN 13 Creatinine 0.79 Estimated GFR 72 L Random Glucose 79 Calcium 7.6 L D Assessment and Plan - Assessment (1) Small bowel obstruction Code(s): K56.609 - Unspecified intestinal obstruction, unspecified as to partial versus complete obstruction Status: Acute - Plan This is a 72-year-old with a personal small bowel obstruction with a history of Crohn's disease. She was admitted due to the partial small bowel obstruction and severe abdominal. At this time she reports her abdominal pain is completely resolved, she is having bowel movements, and she is tolerating a diet. She wished to be discharged home. 1. Partial small bowel obstruction with history of Crohn's disease -Placed on regular diet -Cleared for discharge by surgery as she is having bowel movements and pain has resolved. -Abdominal pain has resolved and having bowel movements. 2. DVT prophylaxis with SCDs Code Status: Full code Discharge Planning: Discharge home today
--- NOTE | 2017-12-18 09:54 | P.DS ---
Date of admission: 12/16/17 10:03 Primary care physician: No Primary Care Physician Brief History from admission: patient is a 72 y/o female with history of Crohn's disease who presented to ER with abdominal pain. she says that the pain was in lower abdomen and started this morning. pain was severe in intensity and was associated with nausea. she denies any fever,chills, emesis. she had a small bowel movement this morning. DS: Diagnosis - Discharge Diagnosis (1) Small bowel obstruction Status: Acute (2) Crohns disease Status: Chronic (3) History of resection of small bowel Status: Chronic DS: Summary Hospital Course: Patient was admitted on 12/16/17 due to severe abdominal pain was found to have a partial small bowel obstruction. She was placed on n.p.o. and pain control and nausea control through medication. She slowly improved and started having bowel movements and her abdominal pain completely resolved. She was able to tolerate a diet and did not require any surgical management. On 12/18/17 she reports that her abdominal pain is completely resolved she has been having bowel movements and discharged home and was cleared by general surgery for discharge. - Time Spent with Patient Total time spent providing and/or coordinating discharge services: Less than 30 minutes - Quality: VTE Deep Vein Thrombosis/Pulmonary Embolism Present on Admission: No Exam Vital signs: Vital Signs 12/17/17 12:00 12/17/17 16:00 12/17/17 20:00 Temperature 98.7 F 97.1 F L 97.2 F L Pulse Rate 77 80 76 Respiratory Rate 18 18 20 Blood Pressure 113/59 L 129/78 119/73 Pulse Oximetry 95 96 94 L 12/18/17 00:00 12/18/17 08:00 Temperature 97.9 F 97.7 F Pulse Rate 69 95 H Respiratory Rate 20 18 Blood Pressure 99/50 L 114/54 L Pulse Oximetry 93 L 95 Intake & Output 12/17/17 12/18/17 12/18/17 18:59 06:59 18:59 Intake Total 1000 / 1000 1400 / 1400 Balance 1000 / 1000 1400 / 1400 Weight 52.3 kg Intake: IV 1000 / 1000 1400 / 1400 NS Inj 1,000 ML @ 100 mls/hr IV 1000 / 1000 1000 / 1000 .CONT .Q10H [facility] Rx#:[id number] Cipro 400 MG/200 ML Inj 400 mg 200 / 200 In 200 ml @ 200 mls/hr IV.SIG Q12H [facility] Rx#:[id number] Flagyl 500 MG Inj 100 ML @ 100 200 / 200 mls/hr IV.SIG Q8H [facility] Rx#: [id number] Oral 0 / 0 Other: # Voids 4 3 Date of Last Bowel Movement 12/17/17 12/17/17 # Bowel Movements 0 1 Results Procedures completed during hospitalization: No procedures Labs on day of discharge: Labs from last 24 hours 12/17/17 12/17/17 09:45 09:45 CBC w Diff Auto diff final WBC 9.4 RBC 4.00 Hgb 10.9 L D Hct 33.9 L MCV 84.8 MCH 27.3 MCHC 32.2 RDW 13.0 Plt Count 321 MPV 7.2 Neut % (Auto) 71.7 H Lymph % (Auto) 15.3 [place] % (Auto) 6.0 Eos % (Auto) 6.5 H Baso % (Auto) 0.5 Neut # (Auto) 6.8 Lymph # (Auto) 1.4 [place] # (Auto) 0.6 Eos # (Auto) 0.6 H Baso # (Auto) 0.0 WBC Differential . Differential Comment . Sodium 143 Potassium 4.0 Chloride 111 H Carbon Dioxide 24.4 Anion Gap 8 BUN 13 Creatinine 0.79 Estimated GFR 72 L Random Glucose 79 Calcium 7.6 L D - Impressions ITS Impressions Abdomen/Pelvis CT 12/16/17 08:38 CONCLUSION: 1. Abnormally dilated small bowel in the lower abdomen characteristic of at least a partial obstruction. Postsurgical changes of partial small bowel and large bowel resection in the right lower quadrant with abnormal residual soft tissue, spiculation and likely stricturing at this location. Multiple presumed enteroliths. No free air or significant free fluid. 2. Small hiatal hernia. Previous cholecystectomy. Mild scoliosis. Discharge Plan - Discharge Disposition Patient Disposition: 01 Discharge Home - Discharge Condition Condition: Fair - Discharge Order Discharge Orders: Discharge Order (Routine); Ordered 12/18/17 Ordered By: Brigido Mcphreson - Physicians Team Primary Care Provider: Primary Care Physici,No Attending Provider: Brigido Mcphesron Other Providers: Yamilet Winchester MD ; Ran Kyle MD
== END 2017-12-18 10:45 | disposition home or self-care (01) ==
LOC: PHED 08:13 → PHEDA 10:03 → PH3 11:17
PROVIDERS: ADMIT Hospitalist; ATTEND Hospitalist